=== PATIENT | female | born 1955 | race Caucasian/White ===

== ENCOUNTER 2019-10-06 14:25 | Inpatient (IN) | payer BC, SELFPAY ==
[2019-09-30 15:39] VITALS: BMI 48.2
[2019-10-06] VITALS (14 sets, daily range): BP systolic 106–162; BP diastolic 55–89; PULSE 72–100; RESP 14–28; TEMP 36.1–36.6; O2SAT 95–100
--- NOTE | ~2019-10-06 | CT_ITS ---
EXAMINATION: CT abdomen pelvis w con DATE: 10/08/2019 13:18 INDICATION: Abdominal pain. TECHNIQUE: Computed tomography (CT) of the abdomen and pelvis was performed with 100 mL Omnipaque 350 intravenous contrast. Automated exposure control and iterative reconstruction technique were employe d. The dose-length product was 1428.86 mGy-cm. COMPARISON: CT abdomen and pelvis 09/21/2019 FINDINGS: The visualized portions of the lung bases demonstrate moderate atelectasis. There are small pleural effusions. The heart size is normal. No pericardial effusion. The liver is normal. The gallb ladder is distended, likely secondary to fasting. Calcifications in the spleen are consistent with ol d granulomatous disease. The pancreas and adrenal glands are normal. There are 6 mm and 3 mm stones i n right kidney. There is a 5 mm cyst in left kidney. There is diverticulosis of the colon without lety dence of diverticulitis. There are no dilated loops of bowel. The appendix is normal. There are foci of free intraperitoneal gas, consistent with recent surgery. Midline skin tommy are noted. There ar e no pathologically enlarged lymph nodes. There is trace pelvic ascites. There is lumbar levoscoliosi s and severe spondylosis. There are bridging endplate osteophytes at multiple levels in the thoracic spine, consistent with diffuse idiopathic skeletal hyperostosis (DISH). IMPRESSION: 1. Nonobstructing right kidney stones. 2. Small pleural effusions. 3. Gallbladder distention, likely secondary to fasting. Reviewed, dictated and finalized at location A. NEERING GROUP LEADER
--- NOTE | ~2019-10-06 | XR_ITS ---
EXAMINATION: XR chest 1V portable DATE: 10/08/2019 09:36 INDICATION: Shortness of breath. TECHNIQUE: A single frontal view of the chest was obtained. COMPARISON: Chest 2 views 11/03/2018, CT abdomen and pelvis 09/21/2019 FINDINGS: The lung volumes are small. There is mild atelectasis in left mid and lower lung zones. No pleural effusion or pneumothorax. The heart size is normal. IMPRESSION: 1. Mild atelectasis in left mid and lower lung zones. Reviewed, dictated and finalized at location A. IGHT PIN MAKING MACHINE OPERATOR
--- NOTE | ~2019-10-06 | CT_ITS ---
EXAMINATION: CTA chest PE protocol DATE: 10/11/2019 12:43 INDICATION: Shortness of breath. TECHNIQUE: Computed tomography angiography (CTA) of the chest was performed with 100 mL Omnipaque-350 intravenous contrast timed to evaluate the pulmonary arteries. Coronal maximum intensity projection 3D-reconstructions were created by the technologist. Automated exposure control and iterative reconst ruction technique were employed. The dose-length product was 829.88 mGy-cm. COMPARISON: CT abdomen and pelvis 10/08/2019 FINDINGS: There is mild atelectasis bilaterally. There are small pleural effusions. A calcified left lung nodule and calcified left hilar lymph nodes are consistent with old granulomatous disease. Cardi omegaly is noted. No pericardial effusion. There is no pulmonary embolus. Calcifications in the liver and spleen are consistent with old granulomatous disease. There is a small sliding hiatal hernia. Th ere is diffuse hepatic steatosis. There are bridging endplate osteophytes at multiple levels in the s pine, consistent with diffuse idiopathic skeletal hyperostosis (DISH). There is a chronic compression fracture of T4. IMPRESSION: 1. No pulmonary embolus. 2. Small pleural effusions. 3. Small sliding hiatal hernia. Reviewed, dictated and finalized at location A. PROCESSING SUPERVISOR
--- NOTE | ~2019-10-06 | CT_ITS ---
EXAMINATION: CT soft tissue neck wo con DATE: 10/11/2019 23:48 INDICATION: Choking with swallowing post intubation TECHNIQUE: Computed tomography (CT) of the neck was performed without intravenous contrast. Automated exposure control and iterative reconstruction technique were employed. The dose-length product was 6 37.00 mGy-cm. COMPARISON: Chest CT dated 10/11/2019 FINDINGS: Multinodular goiter. Submandibular and parotid glands are symmetric. There are scattered normal-siz ed lymph nodes in the neck and superior mediastinum, no lymphadenopathy. No masses identified. Ather osclerotic calcifications at the bilateral carotid bulbs. Airway is widely patent. Parapharyngeal and retropharyngeal soft tissues are unremarkable. Orbits are unremarkable. Superior mediastinum is unre markable. Visualized sinuses and mastoid aircells are well aerated. Respiratory motion at the apices of the lungs. Partially visualized small right pleural effusion. Calcified left hilar lymph nodes co nsistent with old granulomatous disease. Mild cervical spondylosis. Chronic T4 compression fracture. There are bridging osteophytes at multiple levels in the upper thoracic spine, consistent with diffus e idiopathic skeletal hyperostosis (DISH). IMPRESSION: 1. Airways patent with normal parapharyngeal and retropharyngeal soft tissues. 2. Multinodular goiter. Reviewed, dictated and finalized at location A. K LINER OPERATOR
--- NOTE | ~2019-10-06 | CT_ITS ---
EXAMINATION: CT brain wo con DATE: 10/11/2019 23:47 INDICATION: Headache. TECHNIQUE: Computed tomography (CT) of the head was performed without intravenous contrast. Sagittal and coronal reconstructions were performed. The mA was adjusted according to patient size. Iterative reconstruction technique was employed. The dose-length product was 681.00 mGy-cm. COMPARISON: head CT dated 08/18/08 FINDINGS: No acute intracranial hemorrhage, acute infarction or abnormal extra axial fluid collection. Mild age -appropriate diffuse volume loss with mild increased prominence of the subarachnoid spaces overlying the convexities. Ventricles are normal and symmetric. No mass/mass effect. Intracranial calcified cer ebral atherosclerosis is noted. The orbits, paranasal sinuses and mastoid air cells are normal. IMPRESSION: 1. Normal aging brain. Reviewed, dictated and finalized at location A. IAL EVENTS COORDINATOR IMPRESSION: 1. Normal aging brain.
--- NOTE | ~2019-10-06 | US_ITS ---
EXAMINATION: US right upper quadrant EXAM DATE: 10/11/2019 12:56 INDICATION: Gallbladder distention on CT. Episode of sudden onset abdominal pain. TECHNIQUE: Multiple grayscale and Doppler images of the abdomen right upper quadrant were obtained (b y a technologist who performed the scan) and subsequently reviewed. Correlation is made to 10/08/2019. FINDINGS: The pancreatic head and body are normal in appearance. The pancreatic tail is not visualized. The l iver has normal echogenicity and contour. There are no focal liver lesions identified. There is no evidence of intrahepatic biliary duct dilation. Portal venous flow was seen in the hepatopedal, nor mal direction and has normal Doppler waveform. No right-sided hydronephrosis. Common bile duct measures 6 mm, which is normal. The gallbladder wall is normal in thickness, with mo derate amount of distention. No sonographic evidence of pericholecystic fluid. There is no cholelit hiases. Technologist performing exam reports patient did not demonstrate sonographic Gomez's sign. Please note that this sign is less reliable in patients who have received pain medication. IMPRESSION: 1. Unremarkable abdominal ultrasound exam. Reviewed, dictated and finalized at location A. SSIONS RECRUITER
[2019-10-06] MEDS: LACTATED RINGERS 1,000 ML 30 ML IV CONT ×2 (07:05→12:32)
[2019-10-06 07:06] LABS: Glucose Point of Care 163 (65-105)
[2019-10-06] MEDS: SCOPOLAMINE 1.5 MG PATCH TRANSDERM (07:15)
[2019-10-06] MEDS: ONDANSETRON INJ 4 MG/2 ML VIAL IV PUSH ×2 (07:15→13:33)
--- NOTE | 2019-10-06 07:15 | WPDANESEPPF ---
Anes - Initial Pre Proc Eval Procedure: Operation Date: 10/06/19 08:15 Proposed Procedures p Laparoscopic Bilateral Oophorectomy - Zina Burns MD Date/Time: 10/06/19 07:15 Surgeon: Zina Burns MD Pre Op Diagnosis: Pelvic Pain/ Bilateral Ovarian Cyst Patient Data Age: 64 Gender: F Height: 5 ft 2 in Weight: 119.75 kg Allergies Allergy/AdvReac Type Severity Reaction Status Date / Time shellfish derived Allergy Difficulty Verified 09/30/19 15:41 Swallowing adhesive AdvReac Mild Rash Verified 09/30/19 15:41 Aminoglycosides AdvReac Mild Rash Verified 09/30/19 15:41 bacitracin AdvReac Mild Rash Verified 09/30/19 15:41 neomycin AdvReac Unknown Rash Verified 09/30/19 15:41 HYDROMORPHONE HCL AdvReac Intermediate NAUSEA/VOMI Uncoded 09/30/19 15:41 TING POLYMYXINBSULF AdvReac Unknown Rash Uncoded 09/30/19 15:41 Home Medications Medication Instructions Recorded Confirmed Type diazepam 5 mg tablet 5 mg PO HS PRN 07/28/19 09/30/19 History insulin glargine 100 unit/mL 16 unit SUB-Q HS 07/28/19 09/30/19 History subcutaneous solution irbesartan 300 mg tablet 300 mg PO DAILY 07/28/19 09/30/19 History meclizine 25 mg tablet 25 mg PO TID 07/28/19 09/30/19 History omeprazole 40 mg PO DAILY 30 Days #30 cap 08/17/19 09/30/19 Rx hydrocodone-acetaminophen [Dolomite] 2 tablet PO Q6H PRN 09/30/19 09/30/19 History Laboratory Tests 10/06/19 07:04 POC Capillary Glucose 163 mg/dl H mg/dl (65-105) Patient hx anesthesia problems: post op nausea/vomiting Family hx anesthesia problems: none PMFSH Past Medical History Medical History Abdominal pain Anxiety Arthritis Asthma Diabetes type 2, controlled Diarrhea Diverticular disease Diverticulitis Generalized headaches Hypertension Morbid obesity Nausea & vomiting Rectal bleeding Tonsil pain Surgical History Surgical History History of partial hysterectomy Hx of tubal ligation Previous back surgery Social History Social History Smoking status: Former smoker Alcohol intake: never Anes - Eval Final PreProcedure Day of Procedure 10/06/19 07:15 Patient weight: morbidly obese Heart: regular rate and rhythm Lungs: decreased breath sounds Airway: Mallampati scale class II Neurological: alert and oriented Last oral intake: >/= 8 hours ASA classification: III Emergent: no Anesthetic plan: proceed Anesthesia type and monitoring: general ETT and standard monitoring Informed Consent: The patient's anesthetic plan and its attendant risks and benefits were discussed with the patient/family/POA. Questions were solicited and answers provided to the satisfaction of the patient/family/POA.
--- NOTE | 2019-10-06 08:23 | WPDHPUPDATE1 ---
History and Physical Update Update Date/Time: 10/06/19 08:23 History and Physical has been reviewed, including an updated exam of the patient. There are NO changes in the patient's condition. Risks, benefits, and alternatives have been discussed and questions answered. Patient agrees to proceed with procedure.
[2019-10-06] MEDS: ceFAZolin SODIUM 1 GM VIAL 2 GM IV PUSH (10:42)
--- NOTE | 2019-10-06 10:45 | SUR.OPER ---
Dr. Burns converted from laparoscopic surgery to open (laparotomy) at 1015.
--- NOTE | 2019-10-06 11:52 | P.OP_ITS ---
Procedure Note - Detailed Date of procedure: 10/06/19 Pre-op diagnosis: Pelvic Pain/ Bilateral Ovarian Cyst Post-op diagnosis: other (Rectal serosal tear) Procedure performed: Repair of rectal serosal tear Description of procedure: I was called in to evaluate the patient intraoperatively. Dr. Burns was performing an ovarian cystectomy. He began laparoscopically, but due to significant adhesions had to convert to open. I was called in to assess the bowel after he had completed the bilateral salpingo oophorectomy. The patient was already intubated and sedated. Consent was implied due to the nature of the surgery. The abdomen was open with a retractor in place and the upper abdomen and packed with laps. I was able to easily visualize the sigmoid colon and rectum. There appeared to be some serosal tears on the anterior surface of the rectum. There were 2 areas in particular that appeared somewhat thin due to the serosal tear. There was no evidence of full-thickness perforation. The bowel all appeared healthy and viable. I repaired the serosal tears on the anterior surface of the rectum using 3 0 silk seromuscular imbricating sutures. A total of 3 sutures were placed longitudinally, but care was taken to reapproximate the serosa without narrowing the lumen of the bowel. Three more sutures were placed in a transverse orientation just cephalad to this area to further reapproximate the serosa. After completing this, the rectum all appeared healthy and viable and the serosal tears appeared adequately repaired. A careful inspection of the remainder of the abdominal cavity was performed. There was 1 area of small bowel adherent to the sigmoid colon epiploic appendage, this was taken down using Metzenbaum scissors. The remainder of the bowel all appeared healthy and viable. The closure of the abdomen was then performed by Dr. Burns. [facility] Surgeon: Yoel Machuca DO Estimated blood loss (mL): 2 Drains: No Complications: No immediate complications Condition: stable Findings: This is a 64-year-old woman who presented with left lower quadrant pain and was found to have a large hemorrhagic adnexal cyst or neoplasm. She presented for elective laparoscopic ovarian cystectomy, but this was converted to open due to significant adhesions. After completing the bilateral salpingo oophorectomy, I was then called in to evaluate the bowel for possible serosal tear and to rule out any other deeper injuries. Careful inspection of the pelvis was performed. Along the anterior surface of the upper rectum near the rectosigmoid junction, there was a 2 cm linear serosal tear, and just proximal to this there was a 2 cm transverse serosa tear. The bowel appeared healthy and viable. The serosal tears were repaired using 3 0 silk seromuscular imbricating sutures. There were a couple other adhesions that were taken down while inspecting the remainder of the bowel. No other significant abnormalities were noted.
--- NOTE | 2019-10-06 12:53 | PM.OP ---
Procedure Note - Brief Procedure Note - Brief Date of procedure: 10/06/19 Pre-op diagnosis: Pelvic Pain/ Bilateral Ovarian Cyst Pelvic pain/unilateral ovarian cyst Post-op diagnosis: same (With pelvic adhesions) Procedure performed: Exploratory laparotomy, adhesiolysis 90 minutes, bilateral salpingo oophorectomy Description of procedure: The patient was taken operating room. She was prepped and draped in the dorsal lithotomy position after induction of general anesthesia. A 5 mm skin incision made in left upper quadrant of the abdomen with a scalpel. A 5 mm trocar was inserted into abdominal cavity under direct visits the scope this incision. A 12 mm left lower quadrant trocar was inserted through left lower quadrant incision made with a scalpel. This was done under direct visualization of the scope. A 5 mm supraumbilical incision was made and a 5 mm trocar was inserted the intra-abdominal cavity under direct visualization scope through this incision. Patient was traced in Trendelenburg position. Adhesiolysis was performed in left lower quadrant of the pelvis to separate the colon from the left pelvic sidewall. After 30 minutes of adhesiolysis the laparoscopic approach was abandoned. The adhesions were too dense. The ovary could not yet even be visualized. The rectum and sigmoid colon were densely adherent to the lower pelvis and vaginal cuff. Prior to abandon the laparoscopic approach 12 mm incision was made in the right lower quadrant of the abdomen. 12 mm trocar was inserted intra-abdominal cavity and direct visualization of the scope. A Wand style retractor was used to that 12 mm trocar to retract the bowel prior to making laparotomy incision.. A laparotomy incision was made using a scalpel. It began above the umbilicus at the 5 mm incision above the umbilicus curving around the right side of the umbilicus and then a vertical incision from the infraumbilical area down to the pubic symphysis. This was carried down to the fascia. The fascia was incised the midline. The fascial incision was extended superior and inferiorly with cautery and Hartley scissors. The preperitoneal fat was dissected bluntly the peritoneal cavity was entered bluntly. The peritoneal incision was since superior and inferiorly good visualization of bladder. A bowel for retractor was placed into the wound. The bowel was packed in the upper abdomen. This was done using lap sponges. A bladder blade was applied and attached to the lower aspect of the bowel for retractor. An additional 60 minutes of adhesiolysis was performed. The ureters were identified bilaterally. The rectum was from the vaginal cuff. This was adherent with dense adhesions. The rectum was also adherent to the ovary. The ovary was adherent densely to the dome of the bladder small intestine was also involved in the collection of dense adhesions in the lower pelvis. The sigmoid colon and rectum were from the pelvic sidewall. Using sharp and blunt dissection the ovary was isolated on the left side. After the ureter was identified the blood supply to the ovary was clamped transected and suture ligated. The ovary was then removed in its entirety using sharp and blunt dissection as it was removed from the bladder. On the right side the ureter was identified. The infundibulopelvic ligament was identified. It was clamped transected and suture ligated. The ovary and fallopian tube were removed. Inspected the pelvis there was found to be a tear in the serosa on the anterior rectum. Dr. Machuca was called to examine the rectum. He put interrupted silk sutures over the serosal tear an interrupted fashion to bring tissue and to bolster the anterior surface of the rectum. When Dr. Machuca finished. The packing and bowel for retractor were removed. The pelvis is irrigated with copious amounts of normal saline. The pelvis was examined and pinpointed a cauterized throughout the pelvis and omentum. The fas
[2019-10-06 13:10] LABS: Glucose Point of Care 302 (65-105)
--- NOTE | 2019-10-06 13:24 | SUR.PHASEI ---
1324- family updated in waiting area
[2019-10-06] MEDS: INSULIN HUMAN REGULAR (*BKC) 100 UNITS/ML 10 UNITS SUB-Q (13:47)
[2019-10-06] MEDS: MEPERIDINE HCL INJ 50 MG/ML AMPUL 25 MG IV PUSH (13:58)
[2019-10-06] MEDS: MORPHINE SULFATE 4 MG/ML INJ IV PUSH ×2 (14:49→20:15)
[2019-10-06 16:06] LABS: Estimated CRCL calculation 100 ml/min; Estimated Glomerular Filt Rate > 60
[2019-10-06] MEDS: KETOROLAC 30 MG/ML VIAL (*BKC) IV PUSH (16:57)
[2019-10-06] MEDS: SODIUM CHLORIDE 0.45% 1,000 ML 125 ML IV CONT (20:03)
[2019-10-06] MEDS: DOCUSATE SODIUM 100 MG CAPSULE PO (20:06)
--- NOTE | 2019-10-06 21:45 | WPDCN ---
Assessment and Plan Assessment and plan (1) Insulin dependent type 2 diabetes mellitus: Code(s): E11.9 - Type 2 diabetes mellitus without complications; Z79.4 - long-term (current) use of insulin Status: Acute Assessment and Plan: Resume basal insulin. Initiate sliding scale insulin, Accu-Cheks, and hypoglycemic protocol. (2) Hypertension: Code(s): I10 - Essential (primary) hypertension Status: Acute Assessment and Plan: Blood pressures were reviewed and they are stable postoperatively. Continue antihypertensives and monitor daily. (3) GERD (gastroesophageal reflux disease): Code(s): K21.9 - Gastro-esophageal reflux disease without esophagitis Status: Acute Assessment and Plan: No acute issues. Continue omeprazole. (4) Vertigo: Code(s): R42 - Dizziness and giddiness Status: Acute Assessment and Plan: This is a chronic problem for the patient. Continue meclizine as needed. (5) Status post exploratory laparotomy: Code(s): Z98.890 - Other specified postprocedural states Status: Acute Assessment and Plan: Wound care and pain control will be deferred to Dr. Burns. (6) Suspected sleep apnea: Code(s): R29.818 - Other symptoms and signs involving the nervous system Status: Acute Assessment and Plan: Patient is requiring 3 liters nasal cannula. May very well have underlying EVANGELINA/OHS. Apnea link tonight. Supervising physician for this history and physical is Dr. Anuradha Oneill. HPI Data of Consult Date/Time: 10/06/19 16:53 Requesting Physician: Zina Burns MD Primary Care Provider: PHYSICIAN NOT ON STAFF Consult Narrative Narrative: Yuni Ramirez is a 64 year old female whom the hospitalist service has been consulted for management of hypertension and diabetes in the postoperative phase. She has been having abdominal discomfort since early August and was ultimately decided to undergo exploratory laparotomy for evaluation. She is status post underwent exploratory laparotomy with adhesiolysis in bilateral salpingo-oophorectomy. A 5 centimeter left ovarian mass was noted which was removed. Her surgery was performed under general anesthesia with no immediate complications documented an estimated blood loss of 500 milliliters. There was a tear in the serosa on the anterior rectum which was repaired per Dr. Machuca. Currently she complains of aching discomfort in her abdomen. She also has a bit of a sore throat. She denies fever, chills, sweats, nausea, vomiting, chest pain, shortness of breath. Review of Systems Review of Systems: Narrative: She had the flu sometime in August. That has since resolved. She suffers from vertigo frequently, and this has not changed. No history of cardiac or pulmonary disease. She denies history of sleep apnea. She believes her diabetes is well controlled, with her numbers typically staying under 150. She denies nephropathy, retinopathy, and neuropathy. Except as documented, all other systems were reviewed and are negative. [facility] Past Medical History Medical History (Updated 10/06/19 @ 23:27 by Latoya Wilhelm PA-C) Anxiety Arthritis Asthma Diverticular disease With history of diverticulitis. Generalized headaches GERD (gastroesophageal reflux disease) Hypertension Insulin dependent type 2 diabetes mellitus Morbid obesity Vertigo Surgical History Surgical History (Updated 10/06/19 @ 23:25 by Latoya Wilhelm PA-C) History of arthroscopic knee surgery History of partial hysterectomy History of tonsillectomy Previous back surgery Status post tubal ligation Family History Family History (Updated 10/06/19 @ 16:54 by Latoya Wilhelm PA-C) Mother Lung cancer Social History Social History (Updated 10/06/19 @ 16:55 by Latoya Wilhelm PA-C) Smoking status: Never smoker Levon
[2019-10-07] VITALS (7 sets, daily range): BP systolic 111–135; BP diastolic 46–54; PULSE 77–100; RESP 18–20; TEMP 36.4–37.2; O2SAT 92–97
[2019-10-07] MEDS: MORPHINE SULFATE 4 MG/ML INJ IV PUSH ×5 (01:25→21:27)
[2019-10-07] MEDS: SODIUM CHLORIDE 0.45% 1,000 ML 125 ML IV CONT (05:01)
[2019-10-07 06:21] LABS: Basophils Percent Auto 0.2 % (0.2-1.2); Eosinophils Percent Auto 0.1 % (0-4.4); Hematocrit 34.9 % (37.0-47.0); Hemoglobin 11.8 g/dL (12.0-15.0); Immature Granulocyte Absolute 0.07 K/mm3 (0.00-0.031); Immature Granulocyte Percent A 0.5 % (0-0.5); Lymphocytes Absolute Auto 1.81 K/mm3 (0.9-3.2); Lymphocytes Percent Auto 13.4 % (18.3-44.2); Mean Corpuscular HGB Conc 33.8 g/dl (32-36); Mean Corpuscular Hemoglobin 30.3 pg (26-34); Mean Corpuscular Volume 89.7 fl (80-100); Mean Platelet Volume 10.1 fl (7.4-10.4); Monocytes Absolute Auto 1.4 K/mm3 (0.1-0.6); Monocytes Percent Auto 10.1 % (2.6-8.5); Neutrophils Absolute Auto 10.3 K/mm3 (1.3-6.7); Neutrophils Percent Auto 75.7 % (45.5-73.1); Platelet Count Result 344 k/mm3 (150-375); Red Blood Count 3.89 M/mm3 (4.2-5.4); Red Cell Distribution Width 12.2 % (11.5-14.5); White Blood Count 13.6 K/mm3 (4.5-10.0)
[2019-10-07 06:32] LABS: Alanine Aminotransferase 24 U/L (4-35); Albumin Level 3.2 g/dL (3.5-5.1); Alkaline Phosphatase 42 U/L (38-126); Aspartate Amino Transferase 22 U/L (14-36); Bilirubin,Total 0.6 mg/dL (0.2-1.3); Blood Urea Nitrogen 18 mg/dL (7-17); Calcium 8.2 mg/dL (8.4-10.2); Carbon Dioxide 26 mmol/L (22-30); Chloride 96 mmol/L (98-107); Estimated CRCL calculation 69 ml/min; Estimated Glomerular Filt Rate > 60; Glucose 196 mg/dL (65-105); Potassium 4.6 mmol/L (3.4-5.0); Sodium 129 mmol/L (137-145)
[2019-10-07 06:42] LABS: Hemoglobin A1C 7.3 % (<5.7)
--- NOTE | 2019-10-07 07:41 | PM.GYNPNOP ---
SHOWROOM CONSULTANT - A/P Assessment and plan (1) Pelvic mass: Code(s): R19.00 - Intra-abdominal and pelvic swelling, mass and lump, unspecified site Status: Acute (2) Insulin dependent type 2 diabetes mellitus: Code(s): E11.9 - Type 2 diabetes mellitus without complications; Z79.4 - penitentiary (current) use of insulin Status: Acute (3) Abdominal pain: Qualifiers: Abdominal location: left lower quadrant Qualified Code(s): R10.32 - Left lower quadrant pain Code(s): R10.9 - Unspecified abdominal pain Status: Acute Postoperative Procedures: Procedures Operation Date: 10/06/19 08:15 Actual Procedures Side Surgeon p Exploratory laparotomy Bilateral Oophorectomy Not Applicable Zina Burns MD s Repair of Rectal Serosal Tear Not Applicable Yoel Machuca DO Postoperative day: 1 Postoperative status: doing well and marginal pain control Postoperative plan: see orders and other (Nausea. ) Time Spent With Patient Time: Total time spent is greater than 50% in coordination of care (as documented) at patient's floor/unit and/or counseling patient: Time with patient: 15 - 25 minutes SHOWROOM CONSULTANT- PN:Subj Post-Op Subjective Date/time seen: 10/07/19 07:41 Reports nausea and incisional pain Subjective: pain is well controlled Exam Const: General: healthy appearing, comfortable and no acute distress Resp: Auscultation: clear to auscultation bilaterally, no rales, no rhonchi and no wheezes Cardio: Rate: regular rate Heart sounds: no click, no murmurs and no rubs GI: Inspection: non-distended, incision (Incison - covered with antimicrobial dressing), Pannus present and obesity GI Palp: Yes abdominal tenderness and Yes Soft to palpation Auscultation: normal bowel sounds Extrem: General: normal to inspection, no pedal edema and no calf tenderness SHOWROOM CONSULTANT - PN: Obj Data Vital Signs Vital Signs: Vital Signs - 24 hr 10/06/19 12:32 10/06/19 12:44 10/06/19 12:59 Temperature 97.3 F L Pulse Rate 90 87 83 Respiratory Rate 28 H 27 H 25 H Blood Pressure 141/80 H 151/85 H 162/89 H Pulse Oximetry 99 100 100 10/06/19 13:14 10/06/19 13:29 10/06/19 13:44 Temperature Pulse Rate 83 93 94 Respiratory Rate 22 H 19 19 Blood Pressure 145/88 H 136/65 134/72 Pulse Oximetry 100 98 98 10/06/19 13:59 10/06/19 14:16 10/06/19 14:25 Temperature 97.5 F L Pulse Rate 100 96 98 Respiratory Rate 20 18 16 Blood Pressure 132/72 112/63 124/67 Pulse Oximetry 99 98 98 10/06/19 14:40 10/06/19 15:15 10/06/19 16:10 Temperature 97.4 F L 97.6 F 97.8 F Pulse Rate 94 96 92 Respiratory Rate 18 18 14 Blood Pressure 106/59 L 114/60 130/75 Pulse Oximetry 98 95 100 10/06/19 22:00 10/07/19 02:00 10/07/19 06:00 Temperature 97.9 F 98.9 F 97.6 F Pulse Rate 95 99 100 Respiratory Rate 20 18 20 Blood Pressure 123/55 L 114/53 L 111/46 L Pulse Oximetry 98 95 95 Intake/Output Intake/Output: Intake & Output 10/04/19 10/05/19 10/06/19 10/07/19 23:59 23:59 23:59 23:59 Intake Total 1050 1120 Output Total 420 300 Balance 630 820 Meds/Results Medications: Active Medications Generic Name Dose Route Start Last Admin Trade Name Freq PRN Reason Stop Dose Admin Dextrose 12.5 gm 10/06/19 23:26 Dextrose 50% Syringe IV PUSH PRN PRN Hypoglycemia Protocol Diazepam 5 mg 10/06/19 14:25 Valium Po PO HS PRN Anxiety Docusate Sodium 100 mg 10/06/19 21:00 10/06/19 20:06 Colace Capsule PO 100 mg Q12HR RAMOS Administration Enoxaparin Sodium 40 mg 10/07/19 09:00 Lovenox SUB-Q DAILY RAMOS Glucagon 1 mg 10/06/19 23:26 Glucagon For Inj IM PRN PRN Hypoglycemia Protocol Glucose 15 gm 10/06/19 23:26 Glutose 15 PO PRN PRN Hypoglycemia Protocol Sodium Chloride 1,000 mls @ 125 mls/hr 10/06/19 19:35 10/07/19 05:01 Sodium Chloride 0.45% IV CONT 125 mls/hr .Q8H RAMOS Administration Dextrose 1,000 mls @ 100 m
[2019-10-07] MEDS: ONDANSETRON INJ 4 MG/2 ML VIAL 8 MG IV PUSH (07:47)
[2019-10-07] MEDS: KETOROLAC 30 MG/ML VIAL (*BKC) IV PUSH ×2 (07:53→13:06)
[2019-10-07] MEDS: IRBESARTAN 150 MG TABLET 300 MG PO (08:03)
[2019-10-07] MEDS: MECLIZINE HCL 25 MG TABLET PO (08:03)
[2019-10-07] MEDS: DOCUSATE SODIUM 100 MG CAPSULE PO ×2 (08:03→21:05)
[2019-10-07] MEDS: PANTOPRAZOLE 40 MG TABLET PO (08:04)
[2019-10-07 09:41] LABS: Glucose Point of Care 216 (65-105)
--- NOTE | 2019-10-07 10:05 | P.PNAN_ITS ---
Anes - Prog Note Post-Op Date/Time: 10/07/19 10:05 Vital Signs: Last Vital Signs Temp 97.6 F 10/07/19 06:00 Pulse 86 10/07/19 09:58 Resp 20 10/07/19 06:00 BP 111/46 L 10/07/19 06:00 Pulse Ox 95 10/07/19 06:00 I/O: Intake & Output 10/06/19 10/07/19 10/07/19 23:59 07:59 15:59 Intake Total 50 1120 Output Total 200 300 Balance -150 820 Laboratory Tests 10/07/19 06:02 10/07/19 06:02 10/06/19 10/06/19 10/07/19 13:07 15:47 06:02 WBC 13.6 H RBC 3.89 L Hgb 11.8 L Hct 34.9 L MCV 89.7 MCH 30.3 MCHC 33.8 RDW 12.2 Plt Count 344 MPV 10.1 Immature Gran % (Auto) 0.5 Neut % (Auto) 75.7 H Lymph % (Auto) 13.4 L Catron % (Auto) 10.1 H Eos % (Auto) 0.1 Baso % (Auto) 0.2 Lymph # (Auto) 1.81 Catron # (Auto) 1.4 H Eos # (Auto) 0.0 Baso # (Auto) 0.0 Abs Immat Gran (auto) 0.07 H Absolute Neuts (auto) 10.3 H Absolute Nucleated RBC 0.0 Nucleated RBC % 0.0 Sodium Potassium Chloride Carbon Dioxide BUN Creatinine 0.60 L Estim Creat Clear Calc 100 Estimated GFR > 60 Glucose POC Capillary Glucose 302 H Hemoglobin A1c Calcium Total Bilirubin AST ALT Alkaline Phosphatase Total Protein Albumin 10/07/19 10/07/19 10/07/19 06:02 06:02 08:06 WBC RBC Hgb Hct MCV MCH MCHC RDW Plt Count MPV Immature Gran % (Auto) Neut % (Auto) Lymph % (Auto) Catron % (Auto) Eos % (Auto) Baso % (Auto) Lymph # (Auto) Catron # (Auto) Eos # (Auto) Baso # (Auto) Abs Immat Gran (auto) Absolute Neuts (auto) Absolute Nucleated RBC Nucleated RBC % Sodium 129 L Potassium 4.6 Chloride 96 L Carbon Dioxide 26 BUN 18 H Creatinine 0.90 Estim Creat Clear Calc 69 Estimated GFR > 60 Glucose 196 H POC Capillary Glucose 216 H Hemoglobin A1c 7.3 H Calcium 8.2 L Total Bilirubin 0.6 AST 22 ALT 24 Alkaline Phosphatase 42 Total Protein 6.0 L Albumin 3.2 L Patient Feedback: Patient satisfied with anesthetic care.
[2019-10-07] MEDS: ENOXAPARIN 40 MG/0.4 ML SYRINGE SUB-Q (13:09)
[2019-10-07 13:27] LABS: Glucose Point of Care 181 (65-105)
--- NOTE | 2019-10-07 15:58 | PM.IMPN ---
Progress Note: A&P Assessment and Plan (1) Insulin dependent type 2 diabetes mellitus: Code(s): E11.9 - Type 2 diabetes mellitus without complications; Z79.4 - terminal clerk (current) use of insulin Status: Acute Assessment and Plan: post op day 1 Initiate sliding scale insulin, Accu-Cheks, and hypoglycemic protocol. (2) Hypertension: Code(s): I10 - Essential (primary) hypertension Status: Acute Assessment and Plan: Blood pressures were reviewed and they are stable postoperatively. Continue antihypertensives and monitor daily. (3) GERD (gastroesophageal reflux disease): Code(s): K21.9 - Gastro-esophageal reflux disease without esophagitis Status: Acute Assessment and Plan: No acute issues. Continue omeprazole. (4) Vertigo: Code(s): R42 - Dizziness and giddiness Status: Acute Assessment and Plan: This is a chronic problem for the patient. Continue meclizine as needed. (5) Status post exploratory laparotomy: Code(s): Z98.890 - Other specified postprocedural states Status: Acute Assessment and Plan: Wound care and pain control Pt seeing DR Burns auto transmission specialist (6) Suspected sleep apnea: Code(s): R29.818 - Other symptoms and signs involving the nervous system Status: Acute Assessment and Plan: Patient is requiring 3 liters nasal cannula. May very well have underlying EVANGELINA/OHS. No other issues Subjective Date/time seen: 10/07/19 15:58 Interval history: Yuni Ramirez is a 64 year old female whom the hospitalist service has been consulted for management of hypertension and diabetes in the postoperative phase. She has been having abdominal discomfort since early August and was ultimately decided to undergo exploratory laparotomy for evaluation. She is status post underwent exploratory laparotomy with adhesiolysis in bilateral salpingo-oophorectomy. A 5 centimeter left ovarian mass was noted which was removed. We are consulted for medical management for DM and HTN Review of Systems Review of Systems: All systems reviewed & are unremarkable except as noted in HPI and below Gastrointestinal: Comments: mild abdo pain ad GERD symptoms Exam Narrative: Exam Narrative: General: A well-developed, morbidly obese female HEENT: Normocephalic, atraumatic. Neck: Supple. Respiratory: Lungs are clear to auscultation bilaterally. Cardiovascular: Regular rate and rhythm with S1-S2. Gastrointestinal: Sp exp lap.with fresh incision and dressing over the abdomen Skin: Warm and dry. No rash or lesions on limited exam. Dry skin on the hands, likely eczema. Extremities: No cyanosis or clubbing. 1+ westley ankle edema bilaterally. Neurological: Alert. Cranial nerves 2-12 grossly intact. No gross focal deficits to casual conversation. Psychiatric: Pleasant and cooperative with normal mood and affect. Judgment and insight intact. Objective Data Vital Signs Vital Signs: Vital Signs - 24 hr 10/06/19 16:10 10/06/19 22:00 10/07/19 02:00 Temperature 36.6 C 36.6 C 37.2 C Pulse Rate 92 95 99 Respiratory Rate 14 20 18 Blood Pressure 130/75 123/55 L 114/53 L Pulse Oximetry 100 98 95 10/07/19 06:00 10/07/19 09:58 10/07/19 10:04 Temperature 36.4 C Pulse Rate 100 86 Respiratory Rate 20 Blood Pressure 111/46 L Pulse Oximetry 95 92 Intake/Output Intake/Output: Intake & Output 10/04/19 10/05/19 10/06/19 10/07/19 23:59 23:59 23:59 23:59 Intake Total 1050 1120 Output Total 420 300 Balance 630 820 Meds/Results Medications: Active Medications Generic Name Dose Route Start Last Admin Trade Name Freq PRN Reason Stop Dose Admin Dextrose 12.5 gm 10/06/19 23:26 Dextrose 50% Syringe IV PUSH PRN PRN Hypoglycemia Protocol Diazepam 5 mg 10/06/19 14:25 Valium Po PO HS PRN Anxiety Docusate Sodium 100
[2019-10-07 17:42] LABS: Glucose Point of Care 147 (65-105)
[2019-10-07] MEDS: PROMETHAZINE HCL 25 MG TABLET PO (18:22)
[2019-10-07] MEDS: SODIUM CHLORIDE 0.45% 500 ML 999 ML IV CONT (19:08)
--- NOTE | 2019-10-07 23:15 | PCRCNOTE ---
APNEA LINK NOT SET UP DUE TO NAUSEA/VOMITING. DISCUSSED WITH LINO ADORNO. WILL ATTEMPT TOMORROW 10/08/2019
[2019-10-08] VITALS (12 sets, daily range): BP systolic 122–145; BP diastolic 42–80; PULSE 84–106; RESP 18–28; TEMP 36.5–37.4; O2SAT 92–99
[2019-10-08] MEDS: SODIUM CHLORIDE 0.45% 1,000 ML 125 ML IV CONT ×4 (00:52→22:32)
[2019-10-08] MEDS: KETOROLAC 30 MG/ML VIAL (*BKC) IV PUSH ×2 (00:58→21:08)
[2019-10-08] MEDS: PROMETHAZINE HCL 25 MG TABLET PO ×2 (02:54→21:07)
[2019-10-08] MEDS: MORPHINE SULFATE 4 MG/ML INJ IV PUSH (04:43)
--- NOTE | 2019-10-08 09:23 | PM.IMPN ---
Progress Note: A&P Assessment and Plan (1) Chest pain: Qualifiers: Chest pain type: other chest pain Qualified Code(s): R07.89 - Other chest pain Code(s): R07.9 - Chest pain, unspecified Status: Acute Assessment and Plan: Does not appear to be cardiac as she is tender to palpation over her chest. EKG ordered stat and reviewed personally by me with no acute changes. Troponin level ordered and negative. Suspect this is all secondary to pain from surgery. Patient already has received Lovenox and has SCDs in place. ABG ordered with results reviewed. Not consistent with pulmonary embolism. Is requiring some oxygen now. Continue to monitor and wean oxygen as tolerated. Gynecology has ordered CT of abdomen pelvis will follow. Total time spent in critical care 35 minutes. (2) Abdominal pain: Qualifiers: Abdominal location: left lower quadrant Qualified Code(s): R10.32 - Left lower quadrant pain Code(s): R10.9 - Unspecified abdominal pain Status: Acute Assessment and Plan: Does not appear to be out of the ordinary for her surgery but CT has been ordered by gynecology. (3) Nausea & vomiting: Qualifiers: Vomiting type: unspecified Vomiting Intractability: unspecified Qualified Code(s): R11.2 - Nausea with vomiting, unspecified Code(s): R11.2 - Nausea with vomiting, unspecified Status: Acute Assessment and Plan: Has not done well with Phenergan. IV Zofran ordered. Will monitor. (4) Status post exploratory laparotomy: Code(s): Z98.890 - Other specified postprocedural states Status: Acute Assessment and Plan: Postoperative care per her machine finisher, Dr. Burns. (5) Insulin dependent type 2 diabetes mellitus: Code(s): E11.9 - Type 2 diabetes mellitus without complications; Z79.4 - superintendent container terminal (current) use of insulin Status: Acute Assessment and Plan: Glucose reviewed on 10/08/2019 and acceptable. Continue sliding scale insulin. Continue to monitor and adjust treatment as needed. (6) Hypertension: Qualifiers: Hypertension type: essential hypertension Qualified Code(s): I10 - Essential (primary) hypertension Code(s): I10 - Essential (primary) hypertension Status: Acute Assessment and Plan: Blood pressure reviewed on 10/08/2019 and acceptable. Continue losartan. Continue to monitor. (7) GERD (gastroesophageal reflux disease): Qualifiers: Esophagitis presence: esophagitis presence not specified Qualified Code(s): K21.9 - Gastro-esophageal reflux disease without esophagitis Code(s): K21.9 - Gastro-esophageal reflux disease without esophagitis Status: Acute Assessment and Plan: Continue Protonix. If continuing problems with nausea may need adjustment in medication. (8) Vertigo: Code(s): R42 - Dizziness and giddiness Status: Acute Assessment and Plan: Chronic and unchanged. Continue meclizine. (9) Suspected sleep apnea: Code(s): R29.818 - Other symptoms and signs involving the nervous system Status: Acute Assessment and Plan: EVANGELINA possible in this patient. Currently on 1 L of oxygen. Anticipate will need further evaluation as an outpatient. (10) DVT prophylaxis: Code(s): Z29.9 - Encounter for prophylactic measures, unspecified Status: Acute Assessment and Plan: Lovenox and SCDs. Time Spent With Patient Time with patient: 25 - 35 minutes Subjective Date/time seen: 10/08/19 09:23 Interval history: Date of Service: 10/08/2019. Admitted by OBGYN for exploratory laparotomy with resultant adhesiolysis, bilateral salpingo oophorectomy and removal of left ovarian mass. Hospitalist service was consulted on 10/06/2019 for medical management of health problems. I was called by nursing this morning at 8:55 a.m. due to patient having chest pain throughout the night.
[2019-10-08 09:28] LABS: Alveolar/Arterial O2 Gradient 86.4 mmHg; Base Excess ABG -0.7 mEq/l (+/-2.0); Carboxyhemoglobin 0.2 % THb (0-2.0); Device NASAL CANNULA; Fractional Inspired Oxygen 30 %; HCO3 ABG 24.3 mEq/l (22.0-26.0); Liters per Minute 2.5 LPM; Methemoglobin ABG 0.7 %THb (0-1.5); Modified Allen's Test Pass; Oxygen Content ABG 15.5 %vol (16.0-22.0); Oxygen Saturation ABG 95.4 % (95.0-100.0); Oxyhemoglobin 93.9 % THb (90.0-100.0); PCO2 ABG 41.7 mmHg (35.0-45.0); PO2 ABG 78.5 mmHg (80.0-100.0); PO2 FiO2 Ratio Arterial Blood 2.62 %; Reduced Hemoglobin 5.2 %THb (0-5.0); Site Drawn RIGHT RADIAL; Total Hemoglobin 11.7 g/dL (12.0-18.0); pH ABG 7.384 (7.350-7.450)
--- NOTE | 2019-10-08 09:28 | PM.GYNPNOP ---
WORKFORCE CONSULTANT - A/P Postoperative Procedures: Procedures Operation Date: 10/06/19 08:15 Actual Procedures Side Surgeon p Exploratory laparotomy Bilateral Oophorectomy Not Applicable Zina Burns MD s Repair of Rectal Serosal Tear Not Applicable Yoel Machuca DO Time Spent With Patient Time: Total time spent is greater than 50% in coordination of care (as documented) at patient's floor/unit and/or counseling patient: Time with patient: 15 - 25 minutes WORKFORCE CONSULTANT- PN:Subj Post-Op Subjective Date/time seen: 10/08/19 09:28 Interval history: Date of Service: 10/08/2019. This patient is a 64-year-old female who is postop day 2 from a large laparotomy incision for BSO and resection of a mass. She reported some chest pain and shortness of breath this morning. She also reported some sharp stabbing pain. I called the hospitalist service to come see her status. She is also has a stat CT of abdomen pelvis ordered. I guess was in the room with the patient. The hospitalist was also there. The chest pain appears to be noncardiac. Cardiac evaluation will be performed. Await CT of the abdomen and pelvis. To follow up later today. WORKFORCE CONSULTANT - PN: Obj Data Vital Signs Vital Signs: Vital Signs - 24 hr 10/07/19 09:58 10/07/19 10:04 10/07/19 14:00 Temperature 97.9 F Pulse Rate 86 77 Respiratory Rate 18 Blood Pressure 135/54 L Pulse Oximetry 92 97 10/07/19 20:00 10/07/19 22:00 10/08/19 04:00 Temperature 98.9 F 99.3 F Pulse Rate 95 95 101 H Respiratory Rate 20 20 20 Blood Pressure 133/51 L 142/53 H Pulse Oximetry 97 97 93 10/08/19 06:00 10/08/19 08:49 10/08/19 09:15 Temperature 99.3 F 97.7 F Pulse Rate 102 H 105 H 102 H Respiratory Rate 20 28 H 24 H Blood Pressure 145/71 H 122/42 L 140/60 Pulse Oximetry 94 95 98 Intake/Output Intake/Output: Intake & Output 10/05/19 10/06/19 10/07/19 10/08/19 23:59 23:59 23:59 23:59 Intake Total 1050 2480 100 Output Total 420 550 600 Balance 630 1930 -500 Meds/Results Medications: Active Medications Generic Name Dose Route Start Last Admin Trade Name Freq PRN Reason Stop Dose Admin Dextrose 12.5 gm 10/06/19 23:26 Dextrose 50% Syringe IV PUSH PRN PRN Hypoglycemia Protocol Diazepam 5 mg 10/06/19 14:25 Valium Po PO HS PRN Anxiety Diphenhydramine HCl 25 mg 10/07/19 16:24 10/07/19 18:22 Benadryl Cap PO 25 mg TID PRN Administration Itching Docusate Sodium 100 mg 10/06/19 21:00 10/07/19 21:05 Colace Capsule PO 100 mg Q12HR RAMOS Administration Enoxaparin Sodium 40 mg 10/07/19 09:00 10/07/19 13:09 Lovenox SUB-Q 40 mg DAILY RAMOS Administration Glucagon 1 mg 10/06/19 23:26 Glucagon For Inj IM PRN PRN Hypoglycemia Protocol Glucose 15 gm 10/06/19 23:26 Glutose 15 PO PRN PRN Hypoglycemia Protocol Sodium Chloride 1,000 mls @ 125 mls/hr 10/06/19 19:35 10/08/19 00:52 Sodium Chloride 0.45% IV CONT 125 mls/hr .Q8H RAMOS Administration Dextrose 1,000 mls @ 100 mls/hr 10/06/19 23:26 Dextrose 5% 1,000 Ml IVPB PRN PRN Hypoglycemia Protocol Insulin Aspart 4 - 8 units 10/07/19 08:00 10/07/19 18:19 Novolog SUB-Q Not Given TIDWM RAMOS Protocol Irbesartan 300 mg 10/07/19 09:00 10/07/19 08:03 Avapro PO 300 mg DAILY RAMOS Administration Ketorolac Tromethamine 30 mg 10/06/19 14:25 10/08/19 00:58 Toradol Inj IV PUSH 10/11/19 14:26 30 mg Q6H PRN Administration Pain Rated 4-6 Meclizine HCl 25 mg 10/06/19 14:35 10/07/19 18:24 Antivert PO Not Given TID RAMOS Morphine Sulfate 4 mg 10/06/19 14:25 10/08/19 04:43 Morphine Sulfate Inj IV PUSH 4 mg Q4H PRN Administration Pain Rated 7-10 Non-Formulary Medication 500 cc 10/08/19 08:30 Fluid Bolus IV CONT 11/07/19 08:31 ONCE RAMOS Oxycodone/Acetaminophen 1 tablet 10/06/19 19:33 Percocet 5-325 Mg PO Q4H PRN Robert
[2019-10-08 09:30] LABS: Basophils Absolute Auto 0.1 K/mm3 (0.0-0.1); Basophils Percent Auto 0.4 % (0.2-1.2); Eosinophils Absolute Auto 0.1 K/mm3 (0-0.3); Eosinophils Percent Auto 1.1 % (0-4.4); Hematocrit 31.9 % (37.0-47.0); Hemoglobin 10.6 g/dL (12.0-15.0); Immature Granulocyte Absolute 0.04 K/mm3 (0.00-0.031); Immature Granulocyte Percent A 0.4 % (0-0.5); Lymphocytes Absolute Auto 2.29 K/mm3 (0.9-3.2); Lymphocytes Percent Auto 20.6 % (18.3-44.2); Mean Corpuscular HGB Conc 33.2 g/dl (32-36); Mean Corpuscular Hemoglobin 30.5 pg (26-34); Mean Corpuscular Volume 91.9 fl (80-100); Mean Platelet Volume 9.9 fl (7.4-10.4); Monocytes Absolute Auto 1.1 K/mm3 (0.1-0.6); Neutrophils Absolute Auto 7.5 K/mm3 (1.3-6.7); Neutrophils Percent Auto 67.5 % (45.5-73.1); Platelet Count Result 258 k/mm3 (150-375); Red Blood Count 3.47 M/mm3 (4.2-5.4); Red Cell Distribution Width 12.3 % (11.5-14.5); White Blood Count 11.1 K/mm3 (4.5-10.0)
[2019-10-08 09:43] LABS: Blood Urea Nitrogen 24 mg/dL (7-17); Carbon Dioxide 27 mmol/L (22-30); Chloride 95 mmol/L (98-107); Estimated CRCL calculation 62 ml/min; Estimated Glomerular Filt Rate 56; Glucose 168 mg/dL (65-105); Potassium 4.3 mmol/L (3.4-5.0); Sodium 130 mmol/L (137-145)
[2019-10-08 09:55] LABS: Troponin I < 0.012 ng/mL (0.000-0.034)
[2019-10-08 12:50] LABS: Glucose Point of Care 166 (65-105)
[2019-10-08] MEDS: ONDANSETRON INJ 4 MG/2 ML VIAL (13:49)
[2019-10-08] MEDS: MECLIZINE HCL 25 MG TABLET PO ×2 (13:50→18:30)
[2019-10-08] MEDS: ENOXAPARIN 40 MG/0.4 ML SYRINGE SUB-Q (13:50)
[2019-10-08] MEDS: PANTOPRAZOLE 40 MG TABLET PO (13:51)
[2019-10-08] MEDS: IRBESARTAN 150 MG TABLET 300 MG PO (13:51)
[2019-10-08] MEDS: DOCUSATE SODIUM 100 MG CAPSULE PO ×2 (13:51→20:27)
--- NOTE | 2019-10-08 14:59 | PC.NURSE ---
RAPID RESPONSE CALLED FOR SOB, CHEST PAIN INCREASED 02 TO 2L STAT EKG GOTTEN, DR DUNNE NOTIFIED FAMILY AT BEDSIDE
[2019-10-08 15:16] LABS: Glucose Point of Care 164 (65-105)
--- NOTE | 2019-10-08 18:00 | PM.GYNPNOP ---
RECREATION MANAGER - A/P Assessment and plan (1) Pelvic mass: Code(s): R19.00 - Intra-abdominal and pelvic swelling, mass and lump, unspecified site Status: Acute (2) Chest pain: Qualifiers: Chest pain type: other chest pain Qualified Code(s): R07.89 - Other chest pain Code(s): R07.9 - Chest pain, unspecified Status: Acute (3) Abdominal pain: Qualifiers: Abdominal location: left lower quadrant Qualified Code(s): R10.32 - Left lower quadrant pain Code(s): R10.9 - Unspecified abdominal pain Status: Acute (4) Nausea & vomiting: Qualifiers: Vomiting type: unspecified Vomiting Intractability: unspecified Qualified Code(s): R11.2 - Nausea with vomiting, unspecified Code(s): R11.2 - Nausea with vomiting, unspecified Status: Acute (5) Insulin dependent type 2 diabetes mellitus: Code(s): E11.9 - Type 2 diabetes mellitus without complications; Z79.4 - rodent exterminator (current) use of insulin Status: Acute (6) Hypertension: Qualifiers: Hypertension type: essential hypertension Qualified Code(s): I10 - Essential (primary) hypertension Code(s): I10 - Essential (primary) hypertension Status: Acute (7) Status post exploratory laparotomy: Code(s): Z98.890 - Other specified postprocedural states Status: Acute (8) Suspected sleep apnea: Code(s): R29.818 - Other symptoms and signs involving the nervous system Status: Acute Assessment and Plan: Patient is a 64-year-old female who is postop day number 2 from a exploratory laparotomy with a bilateral BSO in resection of a mass. 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 She had an episode of chest pain and abdominal pain today. She was evaluated stat by Internal Medicine. It was not considered to be a cardiac problem. It is likely musculoskeletal in associated with the large abdominal incision. She had a CT abdomen pelvis was normal. She does have some questionable mental status which is likely due to her hospitalization and pain medication. Her speech is at times inappropriate. She seems very somnolent. She has comprehensive DVT prophylaxis. Will continue to observe. Medicine is taking care of her diabetes and her hypertension. I believe this suspect some sleep apnea. Postoperative Procedures: Procedures Operation Date: 10/06/19 08:15 Actual Procedures Side Surgeon p Exploratory laparotomy Bilateral Oophorectomy Not Applicable Zina Burns MD s Repair of Rectal Serosal Tear Not Applicable Yoel Machuca DO Time Spent With Patient Time: Total time spent is greater than 50% in coordination of care (as documented) at patient's floor/unit and/or counseling patient: Time with patient: 15 - 25 minutes RECREATION MANAGER- PN:Subj Post-Op Subjective Date/time seen: 10/08/19 18:00 earlier today reported episode of chest pain and sharp stabbing abdominal pain. She was evaluated by Internal Medicine. She had a CT of the abdomen pelvis which were consistent with a postoperative pelvis and abdomen. She continues to have some chest pain and some abdominal pain. She has some shortness of breath. She reports some nausea. Interval history: Date of Service: 10/08/2019. Admitted by OBGYN for exploratory laparotomy with resultant adhesiolysis, bilateral salpingo oophorectomy and removal of left ovarian mass. Hospitalist service was consulted on 10/06/2019 for medical management of health problems. I was called by nursing this morning at 8:55 a.m. due to patient having chest pain throughout the night. Rapid response subsequently called. Upon my arrival to see the patient at 9:15 a.m., patient reports only occasional chest pain. She does report having abdominal pain particularly in the upper abdomen since her surgery 2 days earlier. She reports feeling nauseated but no vomiting. No recent bowel movement. Reports vertigo but states this has been going o
[2019-10-08 18:46] LABS: Glucose Point of Care 160 (65-105)
[2019-10-08] MEDS: ALBUTEROL SULFATE NEB 2.5 MG/0.5 ML INH 5 MG INHALATION (21:01)
[2019-10-08] MEDS: IPRATROPIUM BR 0.02% INH SOLN 0.5 MG/2.5 ML VIAL INHALATION (21:01)
[2019-10-08 22:19] LABS: Glucose Point of Care 152 (65-105)
[2019-10-08 22:46] LABS: Add Urine Microscopic? YES; Appearance Urine Clear (Clear); Bilirubin Urine Negative (Negative); Blood Urine 1+ (Negative); Color Urine Yellow (Yellow); Glucose Urine UA Negative (Negative); Ketones Urine Trace mg/dL (Negative); Leukocyte Esterase Ur Negative LEU/UL (NEGATIVE); Mucus Urine Rare /lpf; Nitrate Urine Negative (Negative); Protein Urine Negative (Negative); Specific Grav Ur 1.043 (1.001-1.035); Squamous Epithelial Cell Urine Rare /hpf (Few); Urobilinogen Urine Negative mg/dL (<2.0)
[2019-10-09] VITALS (10 sets, daily range): BP systolic 128–143; BP diastolic 59–73; PULSE 82–133; RESP 18–20; TEMP 36.7–37.3; O2SAT 93–96
[2019-10-09] MEDS: SIMETHICONE 80 MG TAB.CHEW PO (05:01)
[2019-10-09] MEDS: KETOROLAC 30 MG/ML VIAL (*BKC) IV PUSH ×3 (05:14→20:59)
[2019-10-09] MEDS: IPRATROPIUM BR 0.02% INH SOLN 0.5 MG/2.5 ML VIAL INHALATION ×3 (08:23→20:25)
[2019-10-09] MEDS: ALBUTEROL SULFATE NEB 2.5 MG/0.5 ML INH 5 MG INHALATION ×3 (08:23→20:25)
[2019-10-09 09:26] LABS: Glucose Point of Care 139 (65-105)
[2019-10-09] MEDS: IRBESARTAN 150 MG TABLET 300 MG PO (09:46)
[2019-10-09] MEDS: PANTOPRAZOLE 40 MG TABLET PO (09:46)
[2019-10-09] MEDS: MECLIZINE HCL 25 MG TABLET PO ×3 (09:46→18:06)
[2019-10-09] MEDS: DOCUSATE SODIUM 100 MG CAPSULE PO ×2 (09:47→20:59)
[2019-10-09] MEDS: ENOXAPARIN 40 MG/0.4 ML SYRINGE SUB-Q (09:47)
[2019-10-09] MEDS: SODIUM CHLORIDE 0.45% 1,000 ML 125 ML IV CONT (09:47)
--- NOTE | 2019-10-09 11:11 | PCPTNOTE ---
Attempted PT eval. Pt refused, states she just got back in bed and is too tired. Will try again later today.
[2019-10-09 12:40] LABS: Glucose Point of Care 210 (65-105)
--- NOTE | 2019-10-09 13:08 | PM.GYNPNOP ---
COCKTAIL LOUNGE MANAGER - A/P Postoperative Procedures: Procedures Operation Date: 10/06/19 08:15 Actual Procedures Side Surgeon p Exploratory laparotomy Bilateral Oophorectomy Not Applicable Zina Burns MD s Repair of Rectal Serosal Tear Not Applicable Yoel Machuca DO Postoperative day: 3 Postoperative status: other (slow recovery, no flatus or BM yet. CT abdomen normal yesterday) Postoperative plan: routine post-op care, ambulate, advance diet (if tolerated) and other (Discontinue Matthews) Time Spent With Patient Time: Total time spent is greater than 50% in coordination of care (as documented) at patient's floor/unit and/or counseling patient: Time with patient: 15 - 25 minutes COCKTAIL LOUNGE MANAGER- PN:Subj Post-Op Subjective Date/time seen: 10/09/19 13:08 Interval history: Patient still not feeling well. She c/o persistent chest pain, worst when she tries to drink. She does have nausea but no emesis. She has significant pain, particularly when getting up and down. She has been up out of bed twice per day. She has catheter in place. No BM or flatus since surgery. She had four bites of cream of wheat this morning and is attempting to eat a liquid diet for lunch. She feels like she needs to cough and has severe abdominal pain when she does Review of Systems Review of Systems: All systems reviewed & are unremarkable except as noted in HPI and below Exam Const: General: alert and awake Resp: Auscultation: clear to auscultation bilaterally Cardio: Rate: regular rate Rhythm: regular rhythm GI: Inspection: non-distended Other: soft, appropriately tender. Dressing clean, dry, and intact Urinary Catheter: Urinary Catheter: patent and draining and urine dark Extrem: General: no calf tenderness Psych: Mental Status: mental status grossly normal COCKTAIL LOUNGE MANAGER - PN: Obj Data Vital Signs Vital Signs: Vital Signs - 24 hr 10/08/19 14:00 10/08/19 21:07 10/08/19 21:08 Temperature 36.6 C Pulse Rate 106 H 84 Respiratory Rate 24 H 18 Blood Pressure 122/63 Pulse Oximetry 92 92 10/08/19 21:17 10/08/19 22:00 10/08/19 22:15 Temperature 36.8 C Pulse Rate 88 95 Respiratory Rate 18 18 Blood Pressure 140/80 Pulse Oximetry 95 96 10/09/19 06:00 10/09/19 08:24 10/09/19 08:29 Temperature 36.7 C Pulse Rate 133 H 102 H Respiratory Rate 18 18 Blood Pressure 143/73 H Pulse Oximetry 95 95 10/09/19 08:33 Temperature Pulse Rate 100 Respiratory Rate 18 Blood Pressure Pulse Oximetry Intake/Output Intake/Output: Intake & Output 10/06/19 10/07/19 10/08/19 10/09/19 23:59 23:59 23:59 23:59 Intake Total 1050 2480 3000 1640 Output Total 264 711 3098 1800 Balance 630 1930 1050 -160 Meds/Results Medications: Active Medications Generic Name Dose Route Start Last Admin Trade Name Freq PRN Reason Stop Dose Admin Albuterol 5 mg 10/08/19 14:00 10/09/19 08:23 Albuterol Sulf Neb 2.5mg/0.5ml INHALATION 5 mg Q6HRT RAMOS Administration Dextrose 12.5 gm 10/06/19 23:26 Dextrose 50% Syringe IV PUSH PRN PRN Hypoglycemia Protocol Diazepam 5 mg 10/06/19 14:25 Valium Po PO HS PRN Anxiety Diphenhydramine HCl 25 mg 10/07/19 16:24 10/07/19 18:22 Benadryl Cap PO 25 mg TID PRN Administration Itching Docusate Sodium 100 mg 10/06/19 21:00 10/09/19 09:47 Colace Capsule PO 100 mg Q12HR RAMOS Administration Enoxaparin Sodium 40 mg 10/07/19 09:00 10/09/19 09:47 Lovenox SUB-Q 40 mg DAILY RAMOS Administration Glucagon 1 mg 10/06/19 23:26 Glucagon For Inj IM PRN PRN Hypoglycemia Protocol Glucose 15 gm 10/06/19 23:26 Glutose 15 PO PRN PRN Hypoglycemia Protocol Sodium Chloride 1,000 mls @ 125 mls/hr 10/06/19 19:35 10/09/19 09:47 Sodium Chloride 0.45% IV CONT 125 mls/hr .Q8H RAMOS Administration Dextrose 1,000 mls @ 100 mls/hr 10/06/19 23:26 Dextrose 5% 1,000 Ml IVPB PRN PRN Hypoglycem
[2019-10-09] MEDS: INSULIN ASPART (*BKC) 100 UNITS/ML SUB-Q (14:06)
[2019-10-09] MEDS: PROMETHAZINE HCL 25 MG TABLET PO (14:08)
[2019-10-09 17:37] LABS: Glucose Point of Care 181 (65-105)
--- NOTE | 2019-10-09 17:51 | PM.IMPN ---
Progress Note: A&P Assessment and Plan (1) Chest pain: Qualifiers: Chest pain type: other chest pain Qualified Code(s): R07.89 - Other chest pain Code(s): R07.9 - Chest pain, unspecified Status: Resolved Assessment and Plan: Possibly anxiety related, restart half dose of percocet pt stats she is having abdominal pains (2) Abdominal pain: Qualifiers: Abdominal location: left lower quadrant Qualified Code(s): R10.32 - Left lower quadrant pain Code(s): R10.9 - Unspecified abdominal pain Status: Acute Assessment and Plan: Does not appear to be out of the ordinary for her surgery but CT has been ordered by gynecology. (3) Nausea & vomiting: Qualifiers: Vomiting type: unspecified Vomiting Intractability: unspecified Qualified Code(s): R11.2 - Nausea with vomiting, unspecified Code(s): R11.2 - Nausea with vomiting, unspecified Status: Acute Assessment and Plan: Has not done well with Phenergan. IV Zofran ordered. Will monitor. (4) Status post exploratory laparotomy: Code(s): Z98.890 - Other specified postprocedural states Status: Acute Assessment and Plan: Postoperative care per her obstetrician/gynecologist, Dr. Burns. (5) Insulin dependent type 2 diabetes mellitus: Code(s): E11.9 - Type 2 diabetes mellitus without complications; Z79.4 - remote computer terminal operator (current) use of insulin Status: Acute Assessment and Plan: Glucose reviewed on 10/08/2019 and acceptable. Continue sliding scale insulin. Continue to monitor and adjust treatment as needed. (6) Hypertension: Qualifiers: Hypertension type: essential hypertension Qualified Code(s): I10 - Essential (primary) hypertension Code(s): I10 - Essential (primary) hypertension Status: Acute Assessment and Plan: Blood pressure reviewed on 10/08/2019 and acceptable. Continue losartan. Continue to monitor. (7) GERD (gastroesophageal reflux disease): Qualifiers: Esophagitis presence: esophagitis presence not specified Qualified Code(s): K21.9 - Gastro-esophageal reflux disease without esophagitis Code(s): K21.9 - Gastro-esophageal reflux disease without esophagitis Status: Acute Assessment and Plan: Continue Protonix. If continuing problems with nausea may need adjustment in medication. (8) Vertigo: Code(s): R42 - Dizziness and giddiness Status: Acute Assessment and Plan: Chronic and unchanged. Continue meclizine. (9) Suspected sleep apnea: Code(s): R29.818 - Other symptoms and signs involving the nervous system Status: Acute Assessment and Plan: EVANGELINA possible in this patient. Currently on 1 L of oxygen. Anticipate will need further evaluation as an outpatient. Subjective Date/time seen: 10/09/19 17:51 Interval history: Yuni Ramirez is a 64 year old female whom the hospitalist service has been consulted for management of hypertension and diabetes in the postoperative phase. She has been having abdominal discomfort since early August and was ultimately decided to undergo exploratory laparotomy for evaluation. She is status post underwent exploratory laparotomy with adhesiolysis in bilateral salpingo-oophorectomy. A 5 centimeter left ovarian mass was noted which was removed. We are consulted for medical management for DM and HTN, pt had rapid response yesterday, pt has some sensitivities to pain medications becomes drowsy and hallucinates. Review of Systems Review of Systems: All systems reviewed & are unremarkable except as noted in HPI and below Constitutional: Constitutional: Denies chills, Denies fever(s) and Reports headache(s) Eyes: Eyes: Denies blurry vision and Denies diplopia ENT: Reports vertigo, Reports headache(s), Denies nasal congestion and Denies nasal discharge Cardiovascular: Cardiovascular: Reports chest pain (Intermitten
[2019-10-09 20:27] LABS: Hematocrit 34.2 % (37.0-47.0); Hemoglobin 11.3 g/dL (12.0-15.0); Mean Corpuscular Hemoglobin 30.5 pg (26-34); Mean Corpuscular Volume 92.4 fl (80-100); Mean Platelet Volume 10.3 fl (7.4-10.4); Platelet Count Result 341 k/mm3 (150-375); White Blood Count 9.6 K/mm3 (4.5-10.0)
[2019-10-10 01:23] LABS: Glucose Point of Care 175 (65-105)
[2019-10-10] MEDS: ALBUTEROL SULFATE NEB 2.5 MG/0.5 ML INH 5 MG INHALATION (01:25)
[2019-10-10] MEDS: IPRATROPIUM BR 0.02% INH SOLN 0.5 MG/2.5 ML VIAL INHALATION (01:25)
[2019-10-10 01:33] VITALS: PULSE 112; PULSE 116; RESP 20; O2SAT 95
[2019-10-10 01:41] VITALS: PULSE 110; RESP 20
[2019-10-10] MEDS: KETOROLAC 30 MG/ML VIAL (*BKC) IV PUSH ×3 (03:11→21:19)
[2019-10-10] MEDS: PROMETHAZINE HCL 25 MG TABLET PO ×3 (03:11→21:02)
[2019-10-10] MEDS: SODIUM CHLORIDE 0.45% 1,000 ML 75 ML IV CONT (03:12)
[2019-10-10 06:00] VITALS: BP 145/70; PULSE 84; RESP 18; TEMP 36.7; O2SAT 98
[2019-10-10 06:15] LABS: Hematocrit 31.2 % (37.0-47.0); Hemoglobin 10.2 g/dL (12.0-15.0); Mean Corpuscular HGB Conc 32.7 g/dl (32-36); Mean Corpuscular Hemoglobin 30.5 pg (26-34); Mean Corpuscular Volume 93.4 fl (80-100); Mean Platelet Volume 10.2 fl (7.4-10.4); Platelet Count Result 278 k/mm3 (150-375); Red Blood Count 3.34 M/mm3 (4.2-5.4); White Blood Count 6.3 K/mm3 (4.5-10.0)
[2019-10-10 06:43] LABS: Blood Urea Nitrogen 17 mg/dL (7-17); Carbon Dioxide 27 mmol/L (22-30); Chloride 103 mmol/L (98-107); Estimated CRCL calculation 77 ml/min; Estimated Glomerular Filt Rate > 60; Glucose 171 mg/dL (65-105); Potassium 4.1 mmol/L (3.4-5.0); Sodium 137 mmol/L (137-145)
[2019-10-10 08:06] LABS: Blood Urea Nitrogen 17 mg/dL (7-17); Calcium 8.2 mg/dL (8.4-10.2); Carbon Dioxide 26 mmol/L (22-30); Chloride 102 mmol/L (98-107); Estimated CRCL calculation 87 ml/min; Estimated Glomerular Filt Rate > 60; Glucose 175 mg/dL (65-105); Potassium 3.7 mmol/L (3.4-5.0); Sodium 137 mmol/L (137-145)
[2019-10-10 08:10] LABS: Hematocrit 33.2 % (37.0-47.0); Hemoglobin 10.9 g/dL (12.0-15.0); Mean Corpuscular HGB Conc 32.8 g/dl (32-36); Mean Corpuscular Hemoglobin 30.7 pg (26-34); Mean Corpuscular Volume 93.5 fl (80-100); Mean Platelet Volume 10.4 fl (7.4-10.4); Platelet Count Result 320 k/mm3 (150-375); Red Blood Count 3.55 M/mm3 (4.2-5.4); White Blood Count 6.9 K/mm3 (4.5-10.0)
[2019-10-10] MEDS: DOCUSATE SODIUM 100 MG CAPSULE PO ×2 (08:10→21:02)
[2019-10-10] MEDS: MECLIZINE HCL 25 MG TABLET PO ×3 (08:10→17:44)
[2019-10-10] MEDS: IRBESARTAN 150 MG TABLET 300 MG PO (08:10)
[2019-10-10] MEDS: ENOXAPARIN 40 MG/0.4 ML SYRINGE SUB-Q (08:10)
[2019-10-10] MEDS: PANTOPRAZOLE 40 MG TABLET PO (08:11)
[2019-10-10 08:27] LABS: Glucose Point of Care 163 (65-105)
--- NOTE | 2019-10-10 10:42 | PM.GYNPNOP ---
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 Wean off oxygen. Encourage oral intake. May have solid foods (diabetic diet) as tolerated. pepcid for probable GERD Postoperative Procedures: Procedures Operation Date: 10/06/19 08:15 Actual Procedures Side Surgeon p Exploratory laparotomy Bilateral Oophorectomy Not Applicable Zina Burns MD s Repair of Rectal Serosal Tear Not Applicable Yoel Machuca DO Time Spent With Patient Time: Total time spent is greater than 50% in coordination of care (as documented) at patient's floor/unit and/or counseling patient: Time with patient: less than 15 minutes SCHOOL AGE LEAD TEACHER- PN:Subj Post-Op Subjective Date/time seen: 10/10/19 10:42 Interval history: She is eating small amounts of liquids and solids, still nauseated but no emesis. Voiding well since catheter out. + flatus but no BM. Pain not well controlled. She c/o chest pain when she eats or drinks. No dizziness / SOB Subjective: patient reports feeling better, patient reports nausea and pain not well controlled Exam Const: General: no acute distress Resp: Auscultation: clear to auscultation bilaterally Cardio: Rate: regular rate Rhythm: regular rhythm GI: Other: soft, appropriately tender, nondistended. No rebound/guarding. Dressing CDI Extrem: General: no calf tenderness Psych: Mental Status: mental status grossly normal SCHOOL AGE LEAD TEACHER - PN: Obj Data Vital Signs Vital Signs: Vital Signs - 24 hr 10/09/19 14:00 10/09/19 14:36 10/09/19 14:43 Temperature 36.7 C Pulse Rate 94 112 H 110 H Respiratory Rate 18 20 20 Blood Pressure 135/65 Pulse Oximetry 96 10/09/19 20:25 10/09/19 20:35 10/09/19 22:00 Temperature 37.3 C Pulse Rate 118 H 116 H 82 Respiratory Rate 20 20 18 Blood Pressure 128/59 L Pulse Oximetry 93 94 10/10/19 01:33 10/10/19 01:41 10/10/19 06:00 Temperature 36.7 C Pulse Rate 116 H 110 H 84 Respiratory Rate 20 20 18 Blood Pressure 145/70 H Pulse Oximetry 95 98 Intake/Output Intake/Output: Intake & Output 10/07/19 10/08/19 10/09/19 10/10/19 23:59 23:59 23:59 23:59 Intake Total 2480 3000 3410 790 Output Total 550 1950 2350 400 Balance 1930 1050 1060 390 Meds/Results Medications: Active Medications Generic Name Dose Route Start Last Admin Trade Name Freq PRN Reason Stop Dose Admin Albuterol 5 mg 10/08/19 14:00 10/10/19 09:17 Albuterol Sulf Neb 2.5mg/0.5ml INHALATION Not Given Q6HRT [facility] Dextrose 12.5 gm 10/06/19 23:26 Dextrose 50% Syringe IV PUSH PRN PRN Hypoglycemia Protocol Diazepam 5 mg 10/06/19 14:25 Valium Po PO HS PRN Anxiety Diphenhydramine HCl 25 mg 10/07/19 16:24 10/07/19 18:22 Benadryl Cap PO 25 mg TID PRN Administration Itching Docusate Sodium 100 mg 10/06/19 21:00 10/10/19 08:10 Colace Capsule PO 100 mg Q12HR RAMOS Administration Enoxaparin Sodium 40 mg 10/07/19 09:00 10/10/19 08:10 Lovenox SUB-Q 40 mg DAILY RAMOS Administration Glucagon 1 mg 10/06/19 23:26 Glucagon For Inj IM PRN PRN Hypoglycemia Protocol Glucose 15 gm 10/06/19 23:26 Glutose 15 PO PRN PRN Hypoglycemia Protocol Sodium Chloride 1,000 mls @ 75 mls/hr 10/06/19 19:35 10/10/19 03:12 Sodium Chloride 0.45% IV CONT 75 mls/hr .[id number] RAMOS Administration Dextrose 1,000 mls @ 100 mls/hr 10/06/19 23:26 Dextrose 5% 1,000 Ml IVPB PRN PRN Hypoglycemia Protocol Insulin Aspart 4 - 8 units 10/07/19 08:00 10/10/19 08:24 Novolog SUB-Q Not Given TIDWM [facility] Protocol Ipratropium Henderson 0.5 mg 10/08/19 14:00 10/10/19 09:17 Atrovent Neb INHALATION Not Given Q6HRT [facility]
[2019-10-10 12:49] LABS: Glucose Point of Care 175 (65-105)
--- NOTE | 2019-10-10 13:11 | PM.IMPN ---
Progress Note: A&P Assessment and Plan (1) Chest pain: Qualifiers: Chest pain type: other chest pain Qualified Code(s): R07.89 - Other chest pain Code(s): R07.9 - Chest pain, unspecified Status: Resolved Assessment and Plan: Possibly anxiety related, pt to start low dose of percocet already on iv tylenol, pt states she is having abdominal pains (2) Abdominal pain: Qualifiers: Abdominal location: left lower quadrant Qualified Code(s): R10.32 - Left lower quadrant pain Code(s): R10.9 - Unspecified abdominal pain Status: Acute Assessment and Plan: Does not appear to be out of the ordinary for her surgery but CT has been ordered by gynecology. started on protonix, some gb distension, pt may benefit from usgb tomorrow. (3) Nausea & vomiting: Qualifiers: Vomiting type: unspecified Vomiting Intractability: unspecified Qualified Code(s): R11.2 - Nausea with vomiting, unspecified Code(s): R11.2 - Nausea with vomiting, unspecified Status: Acute Assessment and Plan: Has not done well with Phenergan. IV Zofran ordered. Will monitor. And on protonix (4) Status post exploratory laparotomy: Code(s): Z98.890 - Other specified postprocedural states Status: Acute Assessment and Plan: Postoperative care per her manager development, Dr. Burns. (5) Insulin dependent type 2 diabetes mellitus: Code(s): E11.9 - Type 2 diabetes mellitus without complications; Z79.4 - termite control servicer (current) use of insulin Status: Acute Assessment and Plan: Glucose reviewed on 10/08/2019 and acceptable. Continue sliding scale insulin. Continue to monitor and adjust treatment as needed. (6) Hypertension: Qualifiers: Hypertension type: essential hypertension Qualified Code(s): I10 - Essential (primary) hypertension Code(s): I10 - Essential (primary) hypertension Status: Acute Assessment and Plan: Blood pressure reviewed on 10/08/2019 and acceptable. Continue losartan. Continue to monitor. (7) GERD (gastroesophageal reflux disease): Qualifiers: Esophagitis presence: esophagitis presence not specified Qualified Code(s): K21.9 - Gastro-esophageal reflux disease without esophagitis Code(s): K21.9 - Gastro-esophageal reflux disease without esophagitis Status: Acute Assessment and Plan: Continue Protonix. If continuing problems with nausea may need adjustment in medication. (8) Vertigo: Code(s): R42 - Dizziness and giddiness Status: Acute Assessment and Plan: Chronic and unchanged. Continue meclizine. (9) Suspected sleep apnea: Code(s): R29.818 - Other symptoms and signs involving the nervous system Status: Acute Assessment and Plan: EVANGELINA possible in this patient. wean off oxygen. Anticipate will need further evaluation as an outpatient. Subjective Date/time seen: 10/10/19 13:11 Interval history: Yuni Ramirez is a 64 year old female whom the hospitalist service has been consulted for management of hypertension and diabetes in the postoperative phase. She has been having abdominal discomfort since early August and was ultimately decided to undergo exploratory laparotomy for evaluation. She is status post underwent exploratory laparotomy with adhesiolysis in bilateral salpingo-oophorectomy. A 5 centimeter left ovarian mass was noted which was removed. We are consulted for medical management for DM and HTN, pt reports abdominal pain restarted on percocet and continued on iv tylenol. pt encouraged to get up and ambulate around the room. Pt has not opened her bowels yet. Discussed case with sock liner. Review of Systems Review of Systems: All systems reviewed & are unremarkable except as noted in HPI and below Constitutional: Constitutional: Reports fatigue and Reports weakness Comments: Abdominal weakness and pain Ex
--- NOTE | 2019-10-10 13:47 | PCPTNOTE ---
Patient refused treatment for this AM due to pain wanted pain pill before attempted therapy due to -04/17 pain, notified nursing; Attempted treatment again this afternoon still refused due to increase pain in stomach and LE -05/18 with pain medication stating feeling dizzy and nauseous, notified nursing staff.
[2019-10-10 14:00] VITALS: BP 161/79; PULSE 135; RESP 18; TEMP 36.7; O2SAT 96
--- NOTE | 2019-10-10 16:29 | PCOTNOTE ---
The patient treatment was not able to be completed. Will plan to continue treatment per plan of care.
[2019-10-10 18:01] LABS: Glucose Point of Care 149 (65-105)
[2019-10-10 21:17] LABS: Glucose Point of Care 138 (65-105)
[2019-10-10 21:48] VITALS: BP 162/80; PULSE 77; RESP 18; TEMP 37.3; O2SAT 93
[2019-10-11] VITALS (24 sets, daily range): BP systolic 125–165; BP diastolic 76–102; PULSE 99–141; RESP 16–24; TEMP 36.6–36.8; O2SAT 92–100
[2019-10-11] MEDS: KETOROLAC 30 MG/ML VIAL (*BKC) IV PUSH (04:48)
[2019-10-11] MEDS: PROMETHAZINE HCL 25 MG TABLET PO (05:01)
[2019-10-11] MEDS: MECLIZINE HCL 25 MG TABLET PO ×3 (05:01→18:13)
[2019-10-11] MEDS: SIMETHICONE 80 MG TAB.CHEW PO (05:01)
--- NOTE | 2019-10-11 06:46 | ECG_ITS ---
Measurements Intervals Babb Rate: 131 P: LA: 0 QRS: -32 QRSD: 114 T: 30 QT: 308 QTc: 455 Interpretive Statements ATRIAL FIBRILLATION WITH RAPID VENTRICULAR RESPONSE LEFT AXIS DEVIATION INTRAVENTRICULAR CONDUCTION DELAY POOR R WAVE PROGRESSION, ANTERIOR LEADS BORDERLINE ST-T WAVE ABNORMALITY- LATERAL LEADS ABNORMAL ECG Electronically Signed On 10-11-2019 7:22:58 BATCH ATTENDANT by Cuauhtemoc Murdock D.O.
--- NOTE | 2019-10-11 08:23 | PM.GYNPNOP ---
EVENTS DIRECTOR - A/P Postoperative Procedures: Procedures Operation Date: 10/06/19 08:15 Actual Procedures Side Surgeon p Exploratory laparotomy Bilateral Oophorectomy Not Applicable Zina Burns MD s Repair of Rectal Serosal Tear Not Applicable Yoel Machuca DO Time Spent With Patient Time: Total time spent is greater than 50% in coordination of care (as documented) at patient's floor/unit and/or counseling patient: Time with patient: less than 15 minutes EVENTS DIRECTOR- PN:Subj Post-Op Subjective Date/time seen: 10/11/19 08:23 visited patient after I was informed she was in AFib. She looks well. From a chummer standpoint she is recovering more normally now. She is tolerating p.o., passing flatus, pain is reasonably managed. Will check an later today for a more comprehensive review over status. 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 Interval history: Yuni Ramirez is a 64 year old female whom the hospitalist service has been consulted for management of hypertension and diabetes in the postoperative phase. She has been having abdominal discomfort since early August and was ultimately decided to undergo exploratory laparotomy for evaluation. She is status post underwent exploratory laparotomy with adhesiolysis in bilateral salpingo-oophorectomy. A 5 centimeter left ovarian mass was noted which was removed. We are consulted for medical management for DM and HTN, pt reports abdominal pain restarted on percocet and continued on iv tylenol. pt encouraged to get up and ambulate around the room. Pt has not opened her bowels yet. Discussed case with stem cutter. EVENTS DIRECTOR - PN: Obj Data Vital Signs Vital Signs: Vital Signs - 24 hr 10/10/19 14:00 10/10/19 21:48 10/11/19 01:22 Temperature 98.0 F 99.1 F Pulse Rate 135 H 77 101 H Respiratory Rate 18 18 Blood Pressure 161/79 H 162/80 H Pulse Oximetry 96 93 96 10/11/19 06:00 Temperature 98.3 F Pulse Rate 128 H Respiratory Rate 18 Blood Pressure 165/86 H Pulse Oximetry 95 Intake/Output Intake/Output: Intake & Output 10/08/19 10/09/19 10/10/19 10/11/19 23:59 23:59 23:59 23:59 Intake Total 3000 3410 1870 310 Output Total 1950 2350 1200 500 Balance 1050 1060 670 -190 Meds/Results Medications: Active Medications Generic Name Dose Route Start Last Admin Trade Name Freq PRN Reason Stop Dose Admin Albuterol 5 mg 10/08/19 14:00 10/10/19 14:43 Albuterol Sulf Neb 2.5mg/0.5ml INHALATION Not Given Q6HRT RAMOS Dextrose 12.5 gm 10/06/19 23:26 Dextrose 50% Syringe IV PUSH PRN PRN Hypoglycemia Protocol Diazepam 5 mg 10/06/19 14:25 Valium Po PO HS PRN Anxiety Diphenhydramine HCl 25 mg 10/07/19 16:24 10/07/19 18:22 Benadryl Cap PO 25 mg TID PRN Administration Itching Docusate Sodium 100 mg 10/06/19 21:00 10/10/19 21:02 Colace Capsule PO 100 mg Q12HR RAMOS Administration Enoxaparin Sodium 40 mg 10/07/19 09:00 10/10/19 08:10 Lovenox SUB-Q 40 mg DAILY RAMOS Administration Glucagon 1 mg 10/06/19 23:26 Glucagon For Inj IM PRN PRN Hypoglycemia Protocol Glucose 15 gm 10/06/19 23:26 Glutose 15 PO PRN PRN Hypoglycemia Protocol Sodium Chloride 1,000 mls @ 75 mls/hr 10/06/19 19:35 10/10/19 03:12 Sodium Chloride 0.45% IV CONT 75 mls/hr .[id number] RAMOS Administration Dextrose 1,000 mls @ 100 mls/hr 10/06/19 23:26 Dextrose 5% 1,000 Ml IVPB PRN PRN Hypoglycemia Protocol Diltiazem HCl 100 mg in 100 mls @ 5 mls/hr 10/11/19 08:00 Cardizem 100 Mg/D5w 100 Ml IV CONT .Q20H RAMOS 5 MG/HR Insulin Aspart 4 - 8 units 10/07/19 08:00 10/10/19 17:50 Novolog SUB-Q Not Given TIDWM [facility] Protocol Ipratropium Sebastian 0.5 mg 10/08/19 14:00 10/10/19 14:43 Atrovent Neb INHALATION Not Given Q6HRT [facility] Irbesartan 300 mg 10/07/19 09:00 10/10/19 08:10 Avapro PO 300 mg DAILY RAMOS Administration Ketorolac Trometha
[2019-10-11] MEDS: SODIUM CHLORIDE 0.45% 1,000 ML 75 ML IV CONT ×2 (08:56→22:26)
[2019-10-11] MEDS: ENOXAPARIN 40 MG/0.4 ML SYRINGE SUB-Q (08:57)
[2019-10-11] MEDS: DOCUSATE SODIUM 100 MG CAPSULE PO ×2 (08:57→23:15)
[2019-10-11] MEDS: IRBESARTAN 150 MG TABLET 300 MG PO (08:57)
[2019-10-11] MEDS: PANTOPRAZOLE 40 MG TABLET PO (08:58)
--- NOTE | 2019-10-11 09:20 | PC.NURSE ---
This patient, Yuni Ramirez, was transferred to IMU room 212 on 10/11/19 at 0920. Personal belongings sent with patient. Belongings list checked and signed with receiving . Report given to Raven HUYNH. Appropriate documentation sent with patient.
--- NOTE | 2019-10-11 09:30 | ECHO_ITS ---
Patient Info Name: Yuni Ramierz Age: 64 years : 1955 Gender: Female Ht: 62 in Wt: 261 lbs BSA: 2.35 m2 HR: 115 bpm BP: 125 / 95 mmHg Heart Rhythm: Atrial Fibrillation Technical Quality: Fair Exam Date: 10/11/2019 2:09 PM Exam Location: [facility] Pulmonary Patient Status: Inpatient Admit Date: 10/06/2019 Staff Ordering Physician: Bennett Olivarez MD Comic Book Artist: John Lyle [facility] Attending Provider: Zina Burns MD Exam Type: CA echo dop color flow w con Study Info Indications I48.0 - Paroxysmal atrial fibrillation Complete two-dimensional, color flow and Doppler transthoracic echocardiogram is performed with contrast to opacify the left ventrical and to improve the deliniation of the left ventrical endocarial boarders. Contrast/Agitated Saline Contrast/Ag. Saline: Definity Amount: 2.00 ml Administered By: Carley Rivera RN History/Risk Factors New onset Atrial fibrillation; HTN, DM2, Chest pain. Summary 1. Left ventricular systolic function is normal, estimated at 60-65%. 2. Definity contrast injected to enhance visualization. 3. Right and left atrial dimensions are normal. Left Ventricle Left ventricular chamber dimension is normal. Left ventricular systolic function is normal, estimated at 60-65%. Definity contrast injected to enhance visualization. Right Ventricle Right ventricular chamber dimension is normal. Left Atria Left atrial chamber dimension is normal. Right Atria Right atrial chamber dimension is normal. Aortic Valve The aortic valve is trileaflet. Pulmonic Valve The pulmonic valve is not well visualized. Mitral Valve The mitral valve has normal leaflets. Mitral valve annulus is mildly calcified. Tricuspid Valve The tricuspid valve leaflets are normal. Pericardium/Pleural The pericardium appears normal. Aorta The aortic root size at the sinus of Valsalva is normal. Left Ventricular Outflow Tract Name Value Normal LVOT 2D LVOT Diameter 2.03 cm LVOT Doppler LVOT Peak Gradient 4 mmHg LVOT Mean Gradient 2 mmHg LVOT VTI 14.61 cm LVOT VTI/AV VTI Ratio 0.55 LVOT Stroke Volume 47.33 ml LVOT CO 3.55 l/min LVOT CI 1.51 L/min/m2 Mitral Valve Name Value Normal MV Doppler MV Decel Navarro 549.30 cm/s2 MV PHT 0 s MV Area (PHT) 5.33 cm2 4.00-5.00 MV Diastolic Function MV E Peak Velocity 78.22 cm/s MV A Peak Velocity 0.51 cm/s
[2019-10-11 10:31] LABS: Glucose Point of Care 148 (65-105)
[2019-10-11 10:37] LABS: Hematocrit 32.9 % (37.0-47.0); Mean Corpuscular HGB Conc 33.4 g/dl (32-36); Mean Corpuscular Hemoglobin 30.6 pg (26-34); Mean Corpuscular Volume 91.6 fl (80-100); Mean Platelet Volume 9.9 fl (7.4-10.4); Platelet Count Result 313 k/mm3 (150-375); Red Blood Count 3.59 M/mm3 (4.2-5.4); Red Cell Distribution Width 11.8 % (11.5-14.5); White Blood Count 5.7 K/mm3 (4.5-10.0)
[2019-10-11 10:49] LABS: Blood Urea Nitrogen 14 mg/dL (7-17); Calcium 8.2 mg/dL (8.4-10.2); Carbon Dioxide 24 mmol/L (22-30); Chloride 101 mmol/L (98-107); Estimated CRCL calculation 100 ml/min; Estimated Glomerular Filt Rate > 60; Glucose 149 mg/dL (65-105); Potassium 3.4 mmol/L (3.4-5.0); Sodium 135 mmol/L (137-145)
--- NOTE | 2019-10-11 11:23 | PM.CNCAR ---
Assessment and Plan Assessment and plan (1) Chest pain: Qualifiers: Chest pain type: other chest pain Qualified Code(s): R07.89 - Other chest pain Code(s): R07.9 - Chest pain, unspecified Status: Resolved Assessment and Plan: Chest pain with swallowing. This is been since surgery.? Etiology. (2) Atrial fibrillation with rapid ventricular response: Code(s): I48.91 - Unspecified atrial fibrillation Status: Acute Assessment and Plan: Noted today. She is on a diltiazem drip for now. 2D echocardiogram Doppler will be ordered. Will check an ABG as well as a CT angio to rule out for pulmonary embolism. Will check a troponin and give metoprolol 5 mg IV x1. If she does not respond well to the metoprolol, will discontinue her diltiazem drip and switch her to amiodarone with bolus as needed She also likely needs johns-cultured as well as imaging of her abdomen. Hospitalist has been notified for assessment (3) Hypertension: Qualifiers: Hypertension type: essential hypertension Qualified Code(s): I10 - Essential (primary) hypertension Code(s): I10 - Essential (primary) hypertension Status: Acute Assessment and Plan: Above goal (4) Pelvic mass: Code(s): R19.00 - Intra-abdominal and pelvic swelling, mass and lump, unspecified site Status: Acute Assessment and Plan: Status post resection (5) Hypokalemia: Code(s): E87.6 - Hypokalemia Status: Acute Assessment and Plan: KCl 40 mEq p.o. x1 (6) Insulin dependent type 2 diabetes mellitus: Code(s): E11.9 - Type 2 diabetes mellitus without complications; Z79.4 - USP (current) use of insulin Status: Acute Assessment and Plan: Per hospitalist team History of Present Illness History of Present Illness Consult date/time: 10/11/19 11:23 Requesting physician: Bennett Olivarez MD Consult reason: atrial fibrillation Reason For Visit: Pelvic Pain/ Bilateral Ovarian Cyst Narrative: Date of service 10/11/2019: History: Patient is a 64-year-old female who was admitted for exploratory laparotomy. She did have adhesionolysis, salpingooopherectomy, ovarian mass removed. She has a slow recover. Yesterday she did undergo a breathing treatment and had some chest pain as well as felt very jittery afterwards. She was planning on going home today then she started feel poorly. She was noted to be in atrial fibrillation with rapid ventricular response. She is short of breath today. She has no chest pain. She does feel hot and appears flushed. No paroxysmal nocturnal dyspnea, orthopnea, edema, syncope or presyncope. She was started on diltiazem drip heart rate is still size in the 140s. She feels very unstable and ?jittery ?. She did not receive any breathing treatments today. Cardiology consultation was therefore requested to help with the atrial fibrillation treatment. She has been having chest pain when her she is swallowing water. She has not had significant solid intake since her surgery last week Review of Systems Review of Systems: All systems reviewed & are unremarkable except as noted in HPI and below Constitutional: Constitutional: Reports weakness Eyes: Eyes: Denies blurry vision ENT: Denies Normal hearing present and Reports dysphagia Cardiovascular: Cardiovascular: Reports chest pain Respiratory: Respiratory: Reports dyspnea Gastrointestinal: Gastrointestinal: Reports abdominal pain Genitourinary: Genitourinary: Reports pelvic pain Musculoskeletal: Musculoskeletal: Denies back pain and Denies neck pain Integumentary/Breasts: Skin/Breast: Denies dry skin Neurologic: Denies headache(s) Psychiatric: Psychiatric: Denies anxiety and Reports confusion Endocrine: Endocrine: Denies fatigue Hematologic/Lymphatic: Hematologic/Lymphatic: Denies easy bleeding and Denies easy bruising Allergic/Immunologic: Allergic/Immunologic: Rohith
[2019-10-11 11:36] LABS: Alveolar/Arterial O2 Gradient 32.8 mmHg; Base Excess ABG 0.3 mEq/l (+/-2.0); Fractional Inspired Oxygen 24 %; HCO3 ABG 24.7 mEq/l (22.0-26.0); Oxygen Content ABG 16.3 %vol (16.0-22.0); Oxygen Saturation ABG 97.1 % (95.0-100.0); Oxyhemoglobin 95.3 % THb (90.0-100.0); PCO2 ABG 39.3 mmHg (35.0-45.0); PO2 ABG 91.6 mmHg (80.0-100.0); PO2 FiO2 Ratio Arterial Blood 3.82 %; Total Hemoglobin 12.1 g/dL (12.0-18.0); pH ABG 7.417 (7.350-7.450)
[2019-10-11 11:38] LABS: Device NASAL CANNULA; Site Drawn LEFT BRACHIAL
[2019-10-11 11:44] LABS: Troponin I < 0.012 ng/mL (0.000-0.034)
[2019-10-11] MEDS: MORPHINE SULFATE 4 MG/ML INJ IV PUSH (11:48)
[2019-10-11] MEDS: METOPROLOL TARTRATE INJ 5 MG/5 ML VIAL IV PUSH (11:48)
[2019-10-11 12:57] LABS: Glucose Point of Care 147 (65-105)
[2019-10-11] MEDS: IPRATROPIUM BR 0.02% INH SOLN 0.5 MG/2.5 ML VIAL INHALATION (14:31)
[2019-10-11] MEDS: PERFLUTREN LIPID MICROSPHERES 1.5 ML VIAL DILUTED TO 10 ML TOTAL VOLUME IV PUSH (14:57)
[2019-10-11] MEDS: POTASSIUM CHLORIDE 20 MEQ PACKET (FOR LIQUID) 40 MEQ PO (15:01)
[2019-10-11 16:18] LABS: Glucose Point of Care 134 (65-105)
--- NOTE | 2019-10-11 16:23 | PC.NURSE ---
This patient, Yuni Ramirez, was received from [facility] on 10/11/19 at 0925. Personal belongings list checked and signed. Patient/family oriented to unit policies and routines
--- NOTE | 2019-10-11 18:27 | PM.IMPN ---
Progress Note: A&P Assessment and Plan (1) Chest pain: Qualifiers: Chest pain type: other chest pain Qualified Code(s): R07.89 - Other chest pain Code(s): R07.9 - Chest pain, unspecified Status: Resolved Assessment and Plan: Possibly anxiety related, pt to start low dose of percocet already on iv tylenol, pt states she is having abdominal pains (2) Abdominal pain: Qualifiers: Abdominal location: left lower quadrant Qualified Code(s): R10.32 - Left lower quadrant pain Code(s): R10.9 - Unspecified abdominal pain Status: Acute Assessment and Plan: Patient morbidly obese female with history of diabetes hypertension had developed abdominal pain in August was persisting was seen by her mold blower and had a exploratory laparotomy with adhesiolysis in bilateral salpingo-oophorectomy. A 5 centimeter left ovarian mass was noted which was removed by the surgeon and patient was doing reasonably well and pain was controlled however this morning patient developed atrial fibrillation with RVR see was transferred to IMU started the patient on diltiazem patient seen by preparation supervisor canning, patient rate is trending down, had a CTA of the chest which was negative for PE and abdominal ultrasound which was negative for gallstones, patient had been complaining sore throat and difficulty with swallowing and had been coughing after the surgery and her cough is persisting, her surgical tommy were causing her pain patient was given morphine which did help her the pain, later patient developed headache which is different than normal headache is still complains of sore throat or difficulty with swallowing we have ordered CT scan of the head as well as soft neck tissue, (3) Nausea & vomiting: Qualifiers: Vomiting type: unspecified Vomiting Intractability: unspecified Qualified Code(s): R11.2 - Nausea with vomiting, unspecified Code(s): R11.2 - Nausea with vomiting, unspecified Status: Acute Assessment and Plan: Has not done well with Phenergan. IV Zofran ordered. Will monitor. And on protonix (4) Status post exploratory laparotomy: Code(s): Z98.890 - Other specified postprocedural states Status: Acute Assessment and Plan: Postoperative care per her mold blower, Dr. Burns. (5) Insulin dependent type 2 diabetes mellitus: Code(s): E11.9 - Type 2 diabetes mellitus without complications; Z79.4 - photographic intelligence officer (current) use of insulin Status: Acute Assessment and Plan: Glucose reviewed on 10/08/2019 and acceptable. Continue sliding scale insulin. Continue to monitor and adjust treatment as needed. (6) Hypertension: Qualifiers: Hypertension type: essential hypertension Qualified Code(s): I10 - Essential (primary) hypertension Code(s): I10 - Essential (primary) hypertension Status: Acute Assessment and Plan: Blood pressure reviewed on 10/08/2019 and acceptable. Continue losartan. Continue to monitor. (7) GERD (gastroesophageal reflux disease): Qualifiers: Esophagitis presence: esophagitis presence not specified Qualified Code(s): K21.9 - Gastro-esophageal reflux disease without esophagitis Code(s): K21.9 - Gastro-esophageal reflux disease without esophagitis Status: Acute Assessment and Plan: Continue Protonix. If continuing problems with nausea may need adjustment in medication. (8) Vertigo: Code(s): R42 - Dizziness and giddiness Status: Acute Assessment and Plan: Chronic and unchanged. Continue meclizine. (9) Suspected sleep apnea: Code(s): R29.818 - Other symptoms and signs involving the nervous system Status: Acute Assessment and Plan: EVANGELINA possible in this patient. wean off oxygen. Anticipate will need further evaluation as an outpatient. (10) Atrial fibrillation with rapid ventricular response: Co
[2019-10-11 20:29] LABS: Glucose Point of Care 129 (65-105)
--- NOTE | 2019-10-11 21:21 | PM.GYNPNOP ---
BILLBOARD ERECTOR - A/P Assessment and plan (1) Atrial fibrillation with rapid ventricular response: Code(s): I48.91 - Unspecified atrial fibrillation Status: Acute (2) Pelvic mass: Code(s): R19.00 - Intra-abdominal and pelvic swelling, mass and lump, unspecified site Status: Acute (3) Abdominal pain: Qualifiers: Abdominal location: left lower quadrant Qualified Code(s): R10.32 - Left lower quadrant pain Code(s): R10.9 - Unspecified abdominal pain Status: Acute (4) Insulin dependent type 2 diabetes mellitus: Code(s): E11.9 - Type 2 diabetes mellitus without complications; Z79.4 - FDC (current) use of insulin Status: Acute (5) Hypertension: Qualifiers: Hypertension type: essential hypertension Qualified Code(s): I10 - Essential (primary) hypertension Code(s): I10 - Essential (primary) hypertension Status: Acute Assessment and Plan: postop day 5. From a exploratory laparotomy with BSO. Recovery has been slow. she is ambulating tolerating p.o. and passing flatus. She is afebrile. She has been transferred to IMU for atrial fibrillation. Continue supportive care through her surgical recovery as medicine manages her AFib, diabetes, hypertension. Postoperative Procedures: Procedures Operation Date: 10/06/19 08:15 Actual Procedures Side Surgeon p Exploratory laparotomy Bilateral Oophorectomy Not Applicable Zina Burns MD s Repair of Rectal Serosal Tear Not Applicable Yoel Machuca DO Time Spent With Patient Time: Total time spent is greater than 50% in coordination of care (as documented) at patient's floor/unit and/or counseling patient: Time with patient: less than 15 minutes BILLBOARD ERECTOR- PN:Subj Post-Op Subjective Date/time seen: 10/11/19 21:21 Tolerating p.o., passing flatus, ambulating, Interval history: Yuni Ramirez is a 64 year old female whom the hospitalist service has been consulted for management of hypertension and diabetes in the postoperative phase. She has been having abdominal discomfort since early August and was ultimately decided to undergo exploratory laparotomy for evaluation. She is status post underwent exploratory laparotomy with adhesiolysis in bilateral salpingo-oophorectomy. A 5 centimeter left ovarian mass was noted which was removed. We are consulted for medical management for DM and HTN, pt reports abdominal pain restarted on percocet and continued on iv tylenol. pt encouraged to get up and ambulate around the room. Pt has not opened her bowels yet. Discussed case with presser and blocker knitted goods. Exam Const: General: healthy appearing, comfortable and no acute distress Resp: Auscultation: clear to auscultation bilaterally, no rales, no rhonchi and no wheezes Cardio: Rate: regular rate Heart sounds: no click, no murmurs and no rubs Other: incision -clean dry and intact GI: Inspection: non-distended Auscultation: normal bowel sounds Extrem: General: normal to inspection, no pedal edema and no calf tenderness BILLBOARD ERECTOR - PN: Obj Data Vital Signs Vital Signs: Vital Signs - 24 hr 10/10/19 21:48 10/11/19 01:22 10/11/19 06:00 Temperature 99.1 F 98.3 F Pulse Rate 77 101 H 128 H Respiratory Rate 18 18 Blood Pressure 162/80 H 165/86 H Pulse Oximetry 93 96 95 10/11/19 08:44 10/11/19 09:40 10/11/19 09:47 Temperature 98.3 F Pulse Rate 134 H 128 H Respiratory Rate 24 H Blood Pressure 161/95 H Pulse Oximetry 96 100 10/11/19 10:00 10/11/19 11:28 10/11/19 11:29 Temperature 98.1 F Pulse Rate 136 H Respiratory Rate Blood Pressure 156/102 H 159/100 H Pulse Oximetry 98 98 10/11/19 11:48 10/11/19 12:00 10/11/19 12:12 Temperature 98.1 F Pulse Rate 141 H 119 H 125 H Respiratory Rate 18 Blood Pressure 125/95 H Pulse Oximetry 98 10/11/19 14:00 10/11/19 14:31 10/11/19 14:42 Temperature Pulse Rate 106 H 109 H 99 Respiratory Rate 18 18 Blood Pressure Pulse Oximetry 96
[2019-10-11] MEDS: LORAZEPAM INJ 2 MG/ML VIAL 0.5 MG IV PUSH (23:15)
[2019-10-12] VITALS (23 sets, daily range): BP systolic 123–154; BP diastolic 59–82; PULSE 70–124; RESP 16–22; TEMP 36.2–36.9; O2SAT 92–97
[2019-10-12] MEDS: IPRATROPIUM BR 0.02% INH SOLN 0.5 MG/2.5 ML VIAL INHALATION ×3 (02:55→14:46)
--- NOTE | 2019-10-12 04:27 | ECG_ITS ---
Measurements Intervals [place] Rate: 75 P: 44 VT: 219 QRS: -27 QRSD: 118 T: 28 QT: 411 QTc: 459 Interpretive Statements SINUS RHYTHM WITH FIRST DEGREE AV BLOCK INCOMPLETE LEFT BUNDLE BRANCH BLOCK ABNORMAL ECG Electronically Signed On 10-12-2019 7:08:27 DELIVERY PROFESSIONAL by Cuauhtemoc Murdock D.O.
[2019-10-12 04:39] LABS: Hematocrit 31.3 % (37.0-47.0); Hemoglobin 10.4 g/dL (12.0-15.0); Mean Corpuscular HGB Conc 33.2 g/dl (32-36); Mean Corpuscular Hemoglobin 30.6 pg (26-34); Mean Corpuscular Volume 92.1 fl (80-100); Mean Platelet Volume 9.5 fl (7.4-10.4); Platelet Count Result 306 k/mm3 (150-375); White Blood Count 5.9 K/mm3 (4.5-10.0)
[2019-10-12 04:56] LABS: Blood Urea Nitrogen 9 mg/dL (7-17); Carbon Dioxide 24 mmol/L (22-30); Chloride 105 mmol/L (98-107); Estimated CRCL calculation 103 ml/min; Estimated Glomerular Filt Rate > 60; Glucose 137 mg/dL (65-105); Potassium 3.9 mmol/L (3.4-5.0); Sodium 136 mmol/L (137-145)
[2019-10-12 08:21] LABS: Glucose Point of Care 140 (65-105)
[2019-10-12] MEDS: MECLIZINE HCL 25 MG TABLET PO (08:51)
[2019-10-12] MEDS: PANTOPRAZOLE 40 MG TABLET PO (08:52)
[2019-10-12] MEDS: ENOXAPARIN 40 MG/0.4 ML SYRINGE SUB-Q (08:52)
[2019-10-12] MEDS: IRBESARTAN 150 MG TABLET 300 MG PO (08:52)
[2019-10-12] MEDS: DOCUSATE SODIUM 100 MG CAPSULE PO (08:52)
--- NOTE | 2019-10-12 08:54 | PM.PNCARD ---
Progress Note: A&P Assessment and Plan (1) Chest pain: Qualifiers: Chest pain type: other chest pain Qualified Code(s): R07.89 - Other chest pain Code(s): R07.9 - Chest pain, unspecified Status: Resolved Assessment and Plan: Chest pain with swallowing. This is been since surgery.? Etiology. Worker for hospitalist or GI (2) Atrial fibrillation with rapid ventricular response: Code(s): I48.91 - Unspecified atrial fibrillation Status: Acute Assessment and Plan: Reverted back to sinus rhythm. Discontinue IV diltiazem. (3) Hypertension: Qualifiers: Hypertension type: essential hypertension Qualified Code(s): I10 - Essential (primary) hypertension Code(s): I10 - Essential (primary) hypertension Status: Acute Assessment and Plan: Above goal (4) Pelvic mass: Code(s): R19.00 - Intra-abdominal and pelvic swelling, mass and lump, unspecified site Status: Acute Assessment and Plan: Status post resection (5) Hypokalemia: Code(s): E87.6 - Hypokalemia Status: Acute Assessment and Plan: Replaced (6) Insulin dependent type 2 diabetes mellitus: Code(s): E11.9 - Type 2 diabetes mellitus without complications; Z79.4 - remote computer terminal operator (current) use of insulin Status: Acute Assessment and Plan: Per hospitalist team (7) Volume overload: Code(s): E87.70 - Fluid overload, unspecified Status: Acute Assessment and Plan: She is several L positive since admission. Stop her IV fluids. Will give her a dose of IV furosemide 20 mg IV x1 Subjective Date/time seen: 10/12/19 08:54 Interval history: Date of service 10/12/2019 Chief complaint: Admitted for exploratory laparotomy. Consult for atrial fibrillation Interval history: Patient is feeling better today. She converted to sinus rhythm overnight. She denies any chest pain except still when swallowing. No shortness of breath. Review of Systems Review of Systems: All systems reviewed & are unremarkable except as noted in HPI and below Constitutional: Constitutional: Denies fatigue, Denies headache(s) and Reports weakness Eyes: Eyes: Denies blurry vision ENT: Denies Normal hearing present, Reports dysphagia, Denies headache(s), Denies lip swelling and Denies neck pain Cardiovascular: Cardiovascular: Reports chest pain and Reports dyspnea Respiratory: Respiratory: Denies wheezing Gastrointestinal: Gastrointestinal: Denies abdominal pain and Reports dysphagia Genitourinary: Genitourinary: Denies hematuria Musculoskeletal: Musculoskeletal: Denies back pain and Denies neck pain Integumentary/Breasts: Skin/Breast: Denies dry skin Neurologic: Denies Normal hearing present, Denies headache(s) and Reports weakness Psychiatric: Psychiatric: Denies anxiety Endocrine: Endocrine: Denies fatigue Hematologic/Lymphatic: Hematologic/Lymphatic: Denies easy bleeding and Denies easy bruising Allergic/Immunologic: Allergic/Immunologic: Denies GI upset with certain foods and Denies lip swelling Exam Narrative: Exam Narrative: Appears to be more calm today.. She is awake and oriented Const: General: comfortable and confusion Orientation/consciousness: confusion HENMT: General nose exam: Normal nares present Eyes: Sclera: sclerae normal Neck: Neck: supple and no JVD Chest: Other: No chest wall pain to palpation Resp: Auscultation: diminished lung sounds Other: Blunting have bilateral bases. Cardio: Rate: regular rate Rhythm: regular rhythm GI: Auscultation: abnormal bowel sounds Skin: General skin exam: normal color Neuro: General: confusion Cranial nerves: No Normal hearing present Sensory Exam: normal sensation Extrem: General: edema bilateral Right upper extremity: full ROM Left upper extremity: full ROM Psych: Affect: normal affect and No Anxious affect present Objective Data Vital Signs Sarah
[2019-10-12] MEDS: POTASSIUM CHLORIDE 20 MEQ TABLET 40 MEQ PO (08:59)
[2019-10-12] MEDS: FUROSEMIDE INJ 40 MG/4 ML VIAL 20 MG IV PUSH (09:34)
--- NOTE | 2019-10-12 09:43 | PCPTNOTE ---
Spoke w/ Dr Olivarez regarding hold or resume therapy. He stated to hold pt until he sees her. Will speak w/ him again later today
--- NOTE | 2019-10-12 11:43 | PCPTNOTE ---
Spoke w/ Dr Olivarez. He gave verbal order to resume PT/OT.
[2019-10-12 12:31] LABS: Glucose Point of Care 127 (65-105)
--- NOTE | 2019-10-12 13:24 | PM.GYNPNOP ---
PLANT INSPECTOR - A/P Assessment and plan (1) Pelvic mass: Code(s): R19.00 - Intra-abdominal and pelvic swelling, mass and lump, unspecified site Status: Acute Assessment and Plan: This patient is a 64-year-old female who is postop day 5. From a open bilateral salpingo-oophorectomy. Her recovery was slow. She had an episode of atrial fibrillation. She is now out of the abnormal heart rhythm. From the surgical standpoint she is ready for discharge. The other care team's appeared to be ready for discharge as well. She is given discharge instructions. She will follow up in 3 days. Postoperative Procedures: Procedures Operation Date: 10/06/19 08:15 Actual Procedures Side Surgeon p Exploratory laparotomy Bilateral Oophorectomy Not Applicable Zina Burns MD s Repair of Rectal Serosal Tear Not Applicable Yoel Machuca DO Time Spent With Patient Time: Total time spent is greater than 50% in coordination of care (as documented) at patient's floor/unit and/or counseling patient: Time with patient: less than 15 minutes PLANT INSPECTOR- PN:Subj Post-Op Subjective Date/time seen: 10/12/19 13:24 patient is ambulating, passing flatus, she is tolerating p.o., her pain is well controlled, Interval history: Date of service 10/12/2019 Chief complaint: Admitted for exploratory laparotomy. Consult for atrial fibrillation Interval history: Patient is feeling better today. She converted to sinus rhythm overnight. She denies any chest pain except still when swallowing. No shortness of breath. Exam Const: General: healthy appearing, comfortable and no acute distress Resp: Auscultation: clear to auscultation bilaterally, no rales, no rhonchi and no wheezes Cardio: Rate: regular rate Heart sounds: no click, no murmurs and no rubs GI: Inspection: non-distended Auscultation: normal bowel sounds Other: Incision is clean dry and intact. Extrem: General: normal to inspection, no pedal edema and no calf tenderness PLANT INSPECTOR - PN: Obj Data Vital Signs Vital Signs: Vital Signs - 24 hr 10/11/19 14:00 10/11/19 14:31 10/11/19 14:42 Temperature Pulse Rate 106 H 109 H 99 Respiratory Rate 18 18 Blood Pressure Pulse Oximetry 96 10/11/19 15:50 10/11/19 16:00 10/11/19 17:58 Temperature 98.2 F 98.2 F Pulse Rate 134 H 127 H 133 H Respiratory Rate 20 24 H Blood Pressure 153/94 H 140/76 Pulse Oximetry 96 92 10/11/19 18:00 10/11/19 19:22 10/11/19 19:56 Temperature 97.8 F 98.2 F Pulse Rate 133 H 130 H 122 H Respiratory Rate 20 16 Blood Pressure 145/97 H 153/98 H Pulse Oximetry 97 99 10/11/19 20:00 10/11/19 21:38 10/11/19 22:00 Temperature Pulse Rate 109 H 141 H 127 H Respiratory Rate 22 H Blood Pressure 146/90 H Pulse Oximetry 95 10/11/19 23:14 10/12/19 00:00 10/12/19 00:35 Temperature Pulse Rate 127 H 124 H Respiratory Rate 20 Blood Pressure 163/94 H 153/82 H Pulse Oximetry 99 10/12/19 02:00 10/12/19 03:00 10/12/19 03:03 Temperature Pulse Rate 102 H 111 H Respiratory Rate 18 Blood Pressure Pulse Oximetry 94 10/12/19 03:10 10/12/19 03:37 10/12/19 04:00 Temperature 98.2 F Pulse Rate 107 H 108 H 109 H Respiratory Rate 18 18 Blood Pressure 132/79 Pulse Oximetry 96 10/12/19 04:19 10/12/19 05:57 10/12/19 06:00 Temperature Pulse Rate 70 79 75 Respiratory Rate 22 H Blood Pressure 154/65 H Pulse Oximetry 97 10/12/19 07:38 10/12/19 08:00 10/12/19 09:15 Temperature 97.2 F L Pulse Rate 76 79 74 Respiratory Rate 20 16 Blood Pressure 145/62 H Pulse Oximetry 97 92 10/12/19 09:23 10/12/19 10:00 10/12/19 12:12 Temperature 98.4 F Pulse Rate 75 80 77 Respiratory Rate 16 20 Blood Pressure 123/59 L Pulse Oximetry 95 Intake/Output Intake/Output: Intake & Output 10/09/19 10/10/19 10/11/19 10/12/19 23:59 23:59 23:59 23:59 Intake Total 3410 1870 2351 1189 Output Total 2350 1200 1000 1875 Balance 7138 196 0451 -686
--- NOTE | 2019-10-12 17:01 | PM.IMPN ---
Progress Note: A&P Assessment and Plan (1) Chest pain: Qualifiers: Chest pain type: other chest pain Qualified Code(s): R07.89 - Other chest pain Code(s): R07.9 - Chest pain, unspecified Status: Resolved Assessment and Plan: Possibly anxiety related, pt to start low dose of percocet already on iv tylenol, pt states she is having abdominal pains (2) Abdominal pain: Qualifiers: Abdominal location: left lower quadrant Qualified Code(s): R10.32 - Left lower quadrant pain Code(s): R10.9 - Unspecified abdominal pain Status: Acute Assessment and Plan: 10/12/19 17:01 Patient morbidly obese female with history of diabetes hypertension had developed abdominal pain in August was persisting was seen by her cook helper juice and had a exploratory laparotomy with adhesiolysis in bilateral salpingo-oophorectomy. A 5 centimeter left ovarian mass was noted which was removed by the surgeon and patient was doing reasonably well and pain was controlled however this morning patient developed atrial fibrillation with RVR see was transferred to IMU started the patient on diltiazem patient seen by form grader, patient rate is trending down, had a CTA of the chest which was negative for PE and abdominal ultrasound which was negative for gallstones, patient had been complaining sore throat and difficulty with swallowing and had been coughing after the surgery and her cough is persisting, her surgical tommy were causing her pain patient was given morphine which did help her the pain, later patient developed headache which is different than normal headache is still complains of sore throat or difficulty with swallowing we have ordered CT scan of the head as well as soft neck tissue, CT scan of the head and neck were negative for any acute pathology today patient is feeling much better any chest pain palpitation abdominal pain is also better, patient denies any fever or chills patient is seen by form grader and does not recommend continue any beta-oscar or anticoagulation patient is seen by her surgeon and patient is clinically stable and will be discharged later today (3) Nausea & vomiting: Qualifiers: Vomiting type: unspecified Vomiting Intractability: unspecified Qualified Code(s): R11.2 - Nausea with vomiting, unspecified Code(s): R11.2 - Nausea with vomiting, unspecified Status: Acute Assessment and Plan: Has not done well with Phenergan. IV Zofran ordered. Will monitor. And on protonix (4) Status post exploratory laparotomy: Code(s): Z98.890 - Other specified postprocedural states Status: Acute Assessment and Plan: Postoperative care per her cook helper juice, Dr. Burns. (5) Insulin dependent type 2 diabetes mellitus: Code(s): E11.9 - Type 2 diabetes mellitus without complications; Z79.4 - scratcher tender (current) use of insulin Status: Acute Assessment and Plan: Glucose reviewed on 10/08/2019 and acceptable. Continue sliding scale insulin. Continue to monitor and adjust treatment as needed. (6) Hypertension: Qualifiers: Hypertension type: essential hypertension Qualified Code(s): I10 - Essential (primary) hypertension Code(s): I10 - Essential (primary) hypertension Status: Acute Assessment and Plan: Blood pressure reviewed on 10/08/2019 and acceptable. Continue losartan. Continue to monitor. (7) GERD (gastroesophageal reflux disease): Qualifiers: Esophagitis presence: esophagitis presence not specified Qualified Code(s): K21.9 - Gastro-esophageal reflux disease without esophagitis Code(s): K21.9 - Gastro-esophageal reflux disease without esophagitis Status: Acute Assessment and Plan: Continue Protonix. If continuing problems with nausea may need adjustment in medication. (8) Vertigo: Code(s): R42 - Dizziness and giddiness Status: Acute Asses
--- NOTE | 2019-11-07 21:23 | P.DS_ITS ---
DS: Diagnosis Admitting Diagnosis Admitting Diagnosis: Unspecified ovarian cyst, left side Discharge Diagnosis (1) Pelvic mass: Code(s): R19.00 - Intra-abdominal and pelvic swelling, mass and lump, unspecified site Status: Acute DS: Summary Hospital Course Hospital Course: unremarkable - slow recovery Status at Discharge Functional status at discharge: independent ambulation Time Spent with Patient Time attestation: Total time spent providing and/or coordinating discharge services: Time spent: Greater than 30 minutes DS: Data Data Completed and Pending Completed studies during hospitalization: Pending at discharge 10/06/19 11:23 Surgical [PTH] Routine Discharge Plan Discharge Attending physician on discharge: Zina Burns Consulting providers: Anuradha Alcaraz ; Jasper Powers ; Yoel Machuca ; Latoya Wilhelm ; Diana Penn ; Orlando Campos V. ; Coral Coffman ; Cuauhtemoc Murdock ; Christopher Ghotra ; Viral Farooq ; Bennett Olivarez ; Kofi Tijerina Discharging Clinician: Zina Burns Patient Disposition: Home, Self-Care Activity: pelvic rest Diet: regular Wound Care Instructions: follow printed instructions Discharge Instructions: Remove the Scopolamine patch that was placed behind your ear in 72 hours or less. Wash your hands after touching. Follow-up with primary care provider 1-2 weeks. You do not need cardiology follow-up at this time Patient Instructions: Pain Management (DC) Follow-up/Referrals: Zina Burns MD [Physician] - Discharge Medications: New hydrocodone-acetaminophen 5-325 mg tablet 1 - 2 tablet PO Q4H PRN (Reason: pain) Qty: 25 RF: 0 Continued diazepam [Valium] 5 mg tablet 5 mg PO HS PRN (Reason: Anxiety) RF: 0 meclizine [Motion Relief (meclizine)] 25 mg tablet 25 mg PO TID RF: 0 irbesartan [Avapro] 300 mg tablet 300 mg PO DAILY RF: 0 Lantus U-100 Insulin 100 unit/mL solution 16 unit SUB-Q HS RF: 0 omeprazole 40 mg capsule,delayed release(DR/EC) 40 mg PO DAILY 30 Days Qty: 30 RF: 5 hydrocodone-acetaminophen [[place]] 5-325 mg tablet 2 tablet PO Q6H PRN (Reason: pain) RF: 0 No Action albuterol sulfate 90 mcg/actuation HFA aerosol inhaler 2 puff INHALATION QID PRN (Reason: shortness of breath or wheezing) Qty: 8.5 RF: 0 Date of admission: 10/06/19 14:25 Primary Care Provider: PHYSICIAN NOT ON STAFF,NONSTAFF Admitting Provider: Zina Burns Discharge Date/Time: 10/12/19 17:20 Attending physician on admission: Zina Burns Quality VTE Prophylaxis VTE prophylaxis: pharmacologic ordered
== END 2019-10-12 17:20 | disposition home or self-care (01) | DRG 742 ==
LOC: ANHSURGERY 14:27 → ANH3MEDSUR 14:27 → ANHIMU 10-11 09:31
PROVIDERS: Family Medicine; Hospitalist; Internal Medicine Cardiovascular Disease; Physician Assistant; Surgery; Admitting Provider Obstetrics & Gynecology; Visit Provider Obstetrics & Gynecology
PROC: 0UT70ZZ Resection of Bilateral Fallopian Tubes, Open Approach (ICD-10-PCS; CPT 49320; principal; 2019-10-06 08:15)
DX: N83.202 Unspecified ovarian cyst, left side (principal); Z68.42 Body mass index [BMI] 45.0-49.9, adult; N83.201 Unspecified ovarian cyst, right side; M19.90 Unspecified osteoarthritis, unspecified site; K57.90 Diverticulosis of intestine, part unspecified, without perforation or abscess without bleeding; E66.01 Morbid (severe) obesity due to excess calories; F41.9 Anxiety disorder, unspecified; I10 Essential (primary) hypertension; Z87.891 Personal history of nicotine dependence; Z53.31 Laparoscopic surgical procedure converted to open procedure; N73.6 Female pelvic peritoneal adhesions (postinfective); Z90.710 Acquired absence of both cervix and uterus; G47.30 Sleep apnea, unspecified; Z79.4 Long term (current) use of insulin; I48.91 Unspecified atrial fibrillation; E87.6 Hypokalemia; E87.70 Fluid overload, unspecified; R07.9 Chest pain, unspecified
CPT/HCPCS: 36415; 36600; 70450; 70490; 71045; 71275; 74177; 76705; 80048; 80053; 81001; 82375; 82565; 82805; 83036; 83050; 83735; 84484; 85025; 85027; 88305; 88307; 88342; 93005; 94640; 94762; 97116; 97161; 97166; 97530; 97535; A9270; C8929; J0131; J0330; J0690; J1100; J1650; J1815; J1885; J1940; J2060; J2175; J2250; J2270; J2370; J2405; J2704; J2710; J3010; J7030; J7120; Q9957; Q9967; Q9968

== ENCOUNTER 2019-10-16 13:36 | Emergency (ER) | payer BC, SELFPAY ==
[2019-10-16] VITALS (7 sets, daily range): BP systolic 157–168; BP diastolic 67–75; PULSE 75–86; RESP 16–28; TEMP 36.7; O2SAT 96–98
--- NOTE | ~2019-10-16 | XR_ITS ---
XR chest 2V DATE: 10/16/2019 14:55 INDICATION: Cough, shortness of breath TECHNIQUE: AP and lateral views COMPARISON: 11/03/2018 2 view chest FINDINGS: No pulmonary infiltrate or consolidation, pleural effusion or pulmonary vascular congestion or pneumothorax is detected. Diffuse idiopathic skeletal hyperostosis of the thoracic spine. There is chronic anterior wedge compr ession fracture deformity of T4. IMPRESSION: No active pulmonary disease Reviewed, dictated and finalized at location A. ER ATTENDANT IMPRESSION: No active pulmonary disease
--- NOTE | 2019-10-16 14:07 | ED.SKABFB ---
HPI - Skin/Abscess/Foreign Bdy General Chief complaint: Skin/Abscess/Foreign Body Stated complaint: Lump On Arm, Request Chest X-ray Time Seen by Provider: 10/16/19 14:06 Source: patient, family and RN notes reviewed Mode of arrival: other Limitations: no limitations History of Present Illness HPI narrative: Pt is a 64 y/o female who presents to the ED with c/o a lump on her left forearm that she noticed yesterday. Pt's spouse notes that the pt was discharged from the ED on Friday (10/12/19) after having an oophorectomy to remove a tumor. Pt believes that she has a blood clot in her left forearm and she requests a chest x-ray. She denies having an IV in the area of the lump on her left forearm. Pt's spouse states that she had an IV in her hand. She notes that she was SOB last time she was in the ED and she went into A-fib after her breathing treatment. Pt also reports a cough, SOB, pruritus, and BLE pain. MD complaint: other (lump) Onset (ago): day(s) (1) Location: LUE Associated symptoms: cough, shortness of breath and other (pruritus, BLE pain) Related Data Home Medications Medication Instructions Recorded Confirmed diazepam 5 mg tablet 5 mg PO HS PRN 07/28/19 09/30/19 insulin glargine 100 unit/mL 16 unit SUB-Q HS 07/28/19 09/30/19 subcutaneous solution irbesartan 300 mg tablet 300 mg PO DAILY 07/28/19 09/30/19 meclizine 25 mg tablet 25 mg PO TID 07/28/19 09/30/19 hydrocodone-acetaminophen [[place]] 2 tablet PO Q6H PRN 09/30/19 09/30/19 Allergies Allergy/AdvReac Type Severity Reaction Status Date / Time polymyxin B Allergy Unknown Rash Verified 10/16/19 13:49 shellfish derived Allergy Difficulty Verified 10/16/19 13:49 Swallowing hydromorphone AdvReac Intermediate Nausea and Verified 10/16/19 13:49 Vomiting adhesive AdvReac Mild Rash Verified 10/16/19 13:49 Aminoglycosides AdvReac Mild Rash Verified 10/16/19 13:49 bacitracin AdvReac Mild Rash Verified 10/16/19 13:49 neomycin AdvReac Unknown Rash Verified 10/16/19 13:49 Review of Systems Review of Systems: All systems reviewed & are unremarkable except as noted in HPI and below Respiratory: Respiratory: Reports cough and Reports dyspnea Musculoskeletal: Musculoskeletal: Reports other (BLE pain) Integumentary/Breasts: Skin/Breast: Reports pruritus and Reports other (lump on left forearm) [facility] Past Medical History Medical History (Updated 10/16/19 @ 17:11 by Agustin Leyva MD) Anxiety Arthritis Asthma Atrial fibrillation with rapid ventricular response Diverticular disease With history of diverticulitis. Generalized headaches GERD (gastroesophageal reflux disease) Hypertension Insulin dependent type 2 diabetes mellitus Morbid obesity Vertigo Surgical History Surgical History History of arthroscopic knee surgery History of partial hysterectomy History of tonsillectomy Previous back surgery Status post tubal ligation Social History Social History Smoking status: Never smoker Alcohol intake: never Substance use: never Additional living arrangements comments: Lives with in [place]. Gender identity (if verbalized by the patient): Female Spiritual care concerns: No Agree to blood products: Yes Exam Const: General: other (wearing a mask) Nutritional Appearance: obese morbidly obese Orientation/consciousness: patient oriented x3 (alert) and Other orientation findings (Alert) Limitations: no limitations HENMT: Head: normocephalic and atraumatic Ears: external ears normal Eyes: Conjunctivae: conjunctivae normal Sclera: sclerae normal EOM: EOMs intact bilaterally Neck: Neck: full ROM, no lymphadenopathy and supple Thyroid: thyroid normal Resp: Effort & Inspection: normal respiratory effort Auscultation: wheezes scattered wheezes (bilaterally) Cardio: Rate: regular rate Rhythm: abnormal rhythm regu
[2019-10-16] MEDS: ALBUTEROL SULFATE NEB 2.5 MG/0.5 ML INH 5 MG INHALATION (14:28)
[2019-10-16] MEDS: IPRATROPIUM BR 0.02% INH SOLN 0.5 MG/2.5 ML VIAL INHALATION (14:28)
[2019-10-16 14:50] LABS: Basophils Percent Auto 0.4 % (0.2-1.2); Eosinophils Absolute Auto 0.1 K/mm3 (0-0.3); Eosinophils Percent Auto 2.5 % (0-4.4); Hematocrit 37.9 % (37.0-47.0); Hemoglobin 12.7 g/dL (12.0-15.0); Immature Granulocyte Absolute 0.02 K/mm3 (0.00-0.031); Immature Granulocyte Percent A 0.4 % (0-0.5); Lymphocytes Percent Auto 37.1 % (18.3-44.2); Mean Corpuscular HGB Conc 33.5 g/dl (32-36); Mean Corpuscular Volume 89.6 fl (80-100); Mean Platelet Volume 9.9 fl (7.4-10.4); Monocytes Absolute Auto 0.6 K/mm3 (0.1-0.6); Neutrophils Absolute Auto 2.3 K/mm3 (1.3-6.7); Neutrophils Percent Auto 46.6 % (45.5-73.1); Platelet Count Result 373 k/mm3 (150-375); Red Blood Count 4.23 M/mm3 (4.2-5.4); Red Cell Distribution Width 12.1 % (11.5-14.5); White Blood Count 4.9 K/mm3 (4.5-10.0)
[2019-10-16 14:59] LABS: Blood Urea Nitrogen 10 mg/dL (7-17); Calcium 8.6 mg/dL (8.4-10.2); Carbon Dioxide 28 mmol/L (22-30); Chloride 97 mmol/L (98-107); Estimated CRCL calculation 89 ml/min; Estimated Glomerular Filt Rate > 60; Glucose 114 mg/dL (65-105); Potassium 3.7 mmol/L (3.4-5.0); Sodium 137 mmol/L (137-145)
== END 2019-10-16 18:13 | disposition home or self-care (01) ==
PROVIDERS: Emergency Provider Emergency Medicine
DX: J10.1 Influenza due to other identified influenza virus with other respiratory manifestations (principal); J45.909 Unspecified asthma, uncomplicated; M19.90 Unspecified osteoarthritis, unspecified site; I48.91 Unspecified atrial fibrillation; K21.9 Gastro-esophageal reflux disease without esophagitis; I10 Essential (primary) hypertension; E11.9 Type 2 diabetes mellitus without complications; Z79.4 Long term (current) use of insulin; E66.01 Morbid (severe) obesity due to excess calories; Z68.42 Body mass index [BMI] 45.0-49.9, adult; F41.9 Anxiety disorder, unspecified
CPT/HCPCS: 36415; 71046; 80048; 85025; 87804; 94640; 96374; 99284; J1100